=== PATIENT | female | born 1935 | race Caucasian/White ===

== ENCOUNTER 2017-01-03 06:37 | Day surgery (SDC) | payer MEDICARE, BC ==
[2008-10-01 04:57] VITALS: BP 105/53
[~2017-01-03] VITALS: Ht 160 cm; Wt 89.9 kg
[2017-01-03] VITALS (8 sets, daily range): BP systolic 96–135; BP diastolic 40–85; PULSE 68–95; TEMP 97.3
[~2017-01-03 06:37] MED LIST: ACID CONTROLLER; ALEVE; ALLEGRA180 MG PO; ALLERGY RELIEF10 MG PO; ASPIRIN 32325 MG/TAB PO; ATENOLOL PO; ATENOLOL25 MG PO; BENZONATATE100 MG PO; BENZONATATE200 MG PO; BENZONATE; BUDESONIDE1 POW; BUPROPION; BUPROPION HCL150 M1 PO; BUPROPION SR150 MG PO; CENTRUM1 TAB PO; CLARITIN; CLARITIN 1010 MG/TAB PO; CLONAZEPAM PO; CLONAZEPAM0.5 MG PO; CRANBERRY CONC500 MG PO; CRANBERRY425 MG PO; DIOVAN80 M1 PO; DIOVAN80 MG PO; DUO NEBULIZER; DUONEB 3 MG/3 ML3 ML IH; EYE WASH; FLONASE NASAL S16 GM NS; FLONASE0.05 MG/AC NS; FLUTICASONE; FORADIL; FORADIL AERO0.012 MG IH; FORADIL IH; GABAPENTIN300 M1 PO; GENTAMICIN180 MG/501 NS; HUMULIN R 10100 U/ML SC; HUMULIN R100 U/ML SQ; IPRATROPIUM BROM3 M1 IH; IRON; KLONOPIN 0.5MG0.5 MG PO; LANTUS SQ; LANTUS100 U/ML; LANTUS100 U/ML SQ; LEVOXYL0.05 MG PO; LISINOPRIL; LISINOPRIL10 MG PO; LISINOPRIL20 MG PO; LORTAB 7.5/5001 TAB PO; LYRICA 100MG C100 M1 PO; LYRICA 150MG C150 MG PO; LYRICA PO; LYRICA100 MG PO; LYRICA150 MG PO; MULTIPLE VITAMI1 CAP PO; MVI; OXY IR5 MG PO; OXYCODONE; OXYCODONE HCL5 MG PO; OXYCODONE5 MG PO; PERCOCET 500 MG1 TAB PO; POLY IRON; PROVENTIL0.09 MG/A1 IH; PULMICORT0.25 MG/2 IH; PULMICORT0.5 MG/21 IH; REFRESH 1 ML1 ML OP; REFRESH PM OP; RT SPIRIVA18 MCG IH; SIMVASTATIN20 MG PO; SINGULAIR; SINGULAIR 110 MG/TAB PO; SINGULAIR PO; SINGULAIR10 MG PO; SPIRIVA HANDIH18 MCG IH; SPIRIVA18 MCG IH; TENORMIN 2525 MG/TAB PO; ULTRAM; ULTRAM 50MG TAB50 MG PO; ULTRAM50 MG PO; VISION FORMULA; VISION FORMULA1 TAB PO; VISION VITAMINS1 TAB PO; VITAMIN E1000 U/CAP PO; VITAMIN E200 I1 PO; VITAMINS; WELLBUTRIN SR150 M1 PO; ZESTRIL 20MG TA20 MG PO; ZOCOR 20MG20 MG PO; [UNRECOGNIZED DRUG - OTHER]; [UNRECOGNIZED DRUG - OTHER]; [UNRECOGNIZED DRUG - OTHER]; [UNRECOGNIZED DRUG - OTHER] IH
[2017-01-03] MEDS ORDERED: ULTRAM 50MG TAB50 MG PO ×2 (07:59→14:52)
[2017-01-03] MEDS ORDERED: CLARITIN 1010 MG/TAB PO (08:00)
[2017-01-03] MEDS ORDERED: LYRICA 150MG C150 MG PO (08:02)
[2017-01-03] MEDS ORDERED: CRANBERRY500 M3 PO (08:03)
[2017-01-03] MEDS ORDERED: CENTRUM HEART (08:04)
[2017-01-03] MEDS ORDERED: TIROSINT50 MC1 PO (08:05)
[2017-01-03] MEDS ORDERED: LUTEIN20 M1 PO (08:06)
[2017-01-03] MEDS ORDERED: [UNRECOGNIZED DRUG - OTHER] (08:07)
[2017-01-03] MEDS ORDERED: ZOCOR 20MG20 MG PO (08:11)
[2017-01-03] MEDS ORDERED: NATURAL E400 IU PO (08:12)
[2017-01-03] MEDS ORDERED: VITAMIND3 5000 (08:13)
[2017-01-03] MEDS ORDERED: MAGNESIUM200 MG PO (08:14)
[2017-01-03] MEDS ORDERED: [UNRECOGNIZED DRUG - OTHER] (08:15)
[2017-01-03] MEDS ORDERED: NOVOLOG FLEX100 U/ML SQ (08:16)
[2017-01-03] MEDS ORDERED: LANTUS SOLOS100 U/ML SQ (08:17)
[2017-01-03] MEDS ORDERED: NORCO 325 MG-7.1 TAB PO ×2 (08:24→14:50)
[2017-01-03] MEDS ORDERED: NORCO 325 MG-7.1 TAB (14:49)
== END 2017-01-03 14:20 | disposition home or self-care (01) ==
LOC: SDCO 06:37
DX: G56.02 Carpal tunnel syndrome, left upper limb (principal); G56.22 Lesion of ulnar nerve, left upper limb; J44.9 Chronic obstructive pulmonary disease, unspecified; E03.9 Hypothyroidism, unspecified; E11.9 Type 2 diabetes mellitus without complications; Z79.4 Long term (current) use of insulin; Z90.49 Acquired absence of other specified parts of digestive tract; Z90.710 Acquired absence of both cervix and uterus; Z96.643 Presence of artificial hip joint, bilateral; Z86.73 Personal history of transient ischemic attack (TIA), and cerebral infarction without residual deficits; Z83.3 Family history of diabetes mellitus; Z82.61 Family history of arthritis; Z82.5 Family history of asthma and other chronic lower respiratory diseases; Z82.49 Family history of ischemic heart disease and other diseases of the circulatory system; Z82.62 Family history of osteoporosis
CPT/HCPCS: J0690; J1100; J2405; J2704; J2765; J3010; J7030

== ENCOUNTER 2020-06-07 12:46 | Emergency (ER) | payer MEDICARE ==
[2008-10-01 04:57] VITALS: BP 105/53
[~2020-06-07] VITALS: Ht 160 cm; Wt 97.7 kg
[~2020-06-07 12:46] MED LIST changes: +CENTRUM HEART; +CRANBERRY500 M3 PO; +DOXYCYCLINE 10100 MG PO; +LANTUS SOLOS100 U/ML SQ; +LUTEIN20 M1 PO; +MAGNESIUM200 MG PO; +NATURAL E400 IU PO; +NORCO 325 MG-7.1 TAB; +NORCO 325 MG-7.1 TAB PO; +NOVOLOG FLEX100 U/ML SQ; +TESSALON P100 MG/CAP PO; +TIROSINT50 MC1 PO; +VITAMIND3 5000; +[UNRECOGNIZED DRUG - OTHER]; +[UNRECOGNIZED DRUG - OTHER]
[2020-06-07 12:47] VITALS: TEMP 97.8
[2020-06-07] MEDS ORDERED: CRUTCHES MC (14:20)
[2020-06-07] MEDS ORDERED: ULTRAM 50MG TAB50 MG PO (14:42)
--- NOTE | 2020-06-07 15:54 | NUR ---
OWEN consult on ortho concern. SW received call from [employer] Quality [employer] of [facility] . She reports that the patient resides with her DTR and Son in law. DTR is POS. Guillaume Coppola son in law. SON in law called and stated that he can not care for patient at home and that he is unable to pick her up until 6:00 pm. Patient is not admittable for stay according to DR. Duff with [facility]. Patient's PCP is Dr. Mendoza, RX obtained at [facility] and [facility]. Patient reports that she uses an electronic wheelchair for mobility. Patient is reported to have an ortho appointment tomorrow at 01:00 p.m. Patient has [facility] care who provides pt/ot services one x a week. OWEN contacted [facility] and spoke with Keya and Tamara about patient's care. Patient is 1 stand by assist and needs further evaluation and our team is not present to complete the assessment. Educated Tamara and Keya about patient's appointment and supporting patient with additional home health services for Tomorrow. Keya reports that they need orders from the that indicate additional home health services. Educated Orders will be faxed after they are finalized. Educated Kiah-case management specialist on plan to evaluate and if needed make consult to IPR. OWEN contact [facility] but will need the evaluation. Yulisa reports that placement from community is a little more involved and we can consult once we have an eval. We will follow up for care on patient if placement is neccassary.
[2020-06-07 17:03] VITALS: BP 100/51; PULSE 77
== END 2020-06-07 17:05 | disposition home or self-care (01) ==
LOC: COL.ER 12:46
DX: S82.852A Displaced trimalleolar fracture of left lower leg, initial encounter for closed fracture (principal); I10 Essential (primary) hypertension; J44.9 Chronic obstructive pulmonary disease, unspecified; E11.9 Type 2 diabetes mellitus without complications; F32.9 Major depressive disorder, single episode, unspecified; G89.29 Other chronic pain; M54.9 Dorsalgia, unspecified; E03.9 Hypothyroidism, unspecified; Z88.0 Allergy status to penicillin; Z86.73 Personal history of transient ischemic attack (TIA), and cerebral infarction without residual deficits; Z88.2 Allergy status to sulfonamides; Z88.6 Allergy status to analgesic agent; Z88.8 Allergy status to other drugs, medicaments and biological substances; Z79.890 Hormone replacement therapy; Z79.4 Long term (current) use of insulin; W18.11XA Fall from or off toilet without subsequent striking against object, initial encounter
CPT/HCPCS: J2405; J3010

== ENCOUNTER 2020-06-23 05:20 | Day surgery (SDC) | payer MEDICARE, BC ==
[~2020-06-23] VITALS: Ht 160 cm; Wt 90.9 kg
[~2020-06-23 05:20] MED LIST changes: +CRUTCHES MC
[2020-06-23 06:25] VITALS: BP 146/57; PULSE 71; TEMP 98.5
--- NOTE | 2020-06-23 06:42 | NUR ---
TO AT 0537- CALL LIGHT IN REACH DR MANRIQUEZ INTO SEE PATIENT
[2020-06-23] MEDS ORDERED: LYRICA 150MG C150 MG PO (06:47)
[2020-06-23] MEDS ORDERED: CENTRUM1 TA1 PO (06:48)
[2020-06-23] MEDS ORDERED: CALCIUM CARBON650 M2 PO (06:50)
[2020-06-23] MEDS ORDERED: COZAAR 25MG25 MG/TAB PO (06:52)
[2020-06-23] MEDS ORDERED: VISION FORMULA1 EAC1 PO (06:53)
[2020-06-23] MEDS ORDERED: VITAMIN E 400 U4001 PO (06:56)
[2020-06-23] MEDS ORDERED: PROBIOTIC FORMU1 CAP PO (06:58)
[2020-06-23] MEDS ORDERED: VENTOLIN0.09 MG IH (06:59)
[2020-06-23] MEDS ORDERED: NOVOLOG FLEX100 U/ML SQ ×2 (07:03→07:04)
[2020-06-23] MEDS ORDERED: NYSTATIN100000 U/1 TOP (07:06)
[2020-06-23 09:45] VITALS: BP 107/84; PULSE 81; TEMP 97.7
--- NOTE | 2020-06-23 10:00 | NUR ---
Patient is back from surgery. She continues to have some pain to left ankle. She stated if we put ice on and reposition her ankle it will help. CMS intact to left foot/toes. Splint dressing to LORETTA CONTEH. Patient is alert and oriented. Denies nausea. Oriented to room. No other changes at this time. Call light within reach.
[2020-06-23 17:28] VITALS: PULSE 79; TEMP 98.2
[2020-06-23 17:30] VITALS: BP 104/45
--- NOTE | 2020-06-23 18:00 | NUR ---
Patient has been doing well since getting back from surgery this morning. Pain is doing better. She was able to nap this afternoon. Her dynamap turned off at some point during her post-ops and can not get it to turn back on. Have attempted several times to turn it back on. Patient denies pain and nausea. No other changes at this time. Call light within reach.
[2020-06-23 19:49] VITALS: BP 95/46; PULSE 83; TEMP 97.7
--- NOTE | 2020-06-23 21:00 | NUR ---
Patient resting in bed with left lower extremity elevated. Capillary refill to left lower extremity less than 3 seconds. Some complaints of pain. [place] and ultram alternated for pain control. Dressing to extremity clean, dry, and intact. Patient using bedpan to void. No other needs at this time. Call light in reach.
[2020-06-23 23:57] VITALS: BP 104/40; PULSE 83; TEMP 97.8
[2020-06-24 04:00] VITALS: BP 106/52; PULSE 79; TEMP 97.6
[2020-06-24 07:23] VITALS: BP 109/46; PULSE 77; TEMP 97.9
--- NOTE | 2020-06-24 07:49 | NUR ---
Patient repositioned in bed for breakfast. Blood sugar stable this am. No insulin required. Left lower extremity elevated & iced. Cms intact. Spint CDI. Int. Patient has chronic pain in back & hip, but pain is elevated post surgery. Pain medication manages well for her. We did discuss side effect of pain medication being constipation, she denies passing flatus, bowel hypoactive. She denies stools softners at this time. Patient thankful for assist with hygiene this am. Will monitor.
--- NOTE | 2020-06-24 10:07 | NUR ---
First visit from the adjunct instructor. No needs right now.
[2020-06-24 12:05] VITALS: BP 103/41; PULSE 72; TEMP 97.8
[2020-06-24] MEDS ORDERED: ASPI325T6 PO (13:11)
--- NOTE | 2020-06-24 13:56 | NUR ---
The patient to discharge home today, 06/24 with [facility] (PT/OT/Nursing) and family support. Debit Agent discussed the discharge plan with the patient's son-in-law, Guillaume. Guillaume has some concerns about taking the patient home. OWEN discussed the options. One option is to private pay at a SNF or home with private duty with an agency. Guillaume was not agreeable to private paying for SNF. He has reached out to [facility] and they may set up services through them. Guillaume states he does not want to go broke paying for the patient's expenses because she did not prepare for extra care. Guillaume reports that [facility] was going to accept the patient but could not do an admission this day, possibly next week. OWEN discussed the payor source with Guillaume. Guillaume states the Medicaid application is only missing the patient's signature. After the patient signs the application he will submit it. After reviewing the patient's chart, the patient has had [facility] in the past. OWEN contacted Foxsmita with [facility]. She confirms they have had her and recently discharged. But will take her for services once again. OWEN faxed clinical updates and discharge orders. OWEN contacted Rebeca with [employer]. Rebeca states they cannot take Medicaid pending at this time. They would have to ensure the application has a good chance of getting approved if the accept. Rebeca mentioned that Guillaume stated that [facility] accepted the patient. SW to contact . OWEN contacted Nabil with [facility] and she states they have not accepted the patient but are willing work with the patient and her family for acceptance from the community. OWEN contacted Martha Jacobson, case reviewer with [facility] to provide the above information. *Discharge Disposition: Home with family support and [facility].
[2020-06-24 17:11] VITALS: BP 133/87; BP 33/87; PULSE 84; TEMP 98.4
--- NOTE | 2020-06-24 17:51 | NUR ---
Patient ready for discharge. Social work assisted with discharge planning. She has been in touch with patient son in law who will provide ride. Int dc. Blood sugar stable. Vss on room air. Left lower extremity cms intact. Pain medication per orders-manages pain. Patient used bedpan prior to discharge. Patient dressed & slide board used to get patient to her home wheelchair. Awaiting her son
--- NOTE | 2020-06-24 18:39 | NUR ---
Patient son here to take her home. Employment And Claims Aide to wheel her out
== END 2020-06-24 18:41 | disposition home health service (06) ==
LOC: SDCO 05:20 → SURG 09:38 → SDCO 06-24 18:41
DX: S93.432A Sprain of tibiofibular ligament of left ankle, initial encounter (principal); S82.852A Displaced trimalleolar fracture of left lower leg, initial encounter for closed fracture; E11.8 Type 2 diabetes mellitus with unspecified complications; E78.00 Pure hypercholesterolemia, unspecified; M19.90 Unspecified osteoarthritis, unspecified site; J44.9 Chronic obstructive pulmonary disease, unspecified; Z20.822 Contact with and (suspected) exposure to COVID-19; Z79.899 Other long term (current) drug therapy; Z79.4 Long term (current) use of insulin; Z80.9 Family history of malignant neoplasm, unspecified; Z79.82 Long term (current) use of aspirin; Z99.3 Dependence on wheelchair; Z96.643 Presence of artificial hip joint, bilateral; W19.XXXA Unspecified fall, initial encounter
CPT/HCPCS: OP; C1713; J0690; J1815; J2704; J3010; J7030

== ENCOUNTER → 2020-12-01 | Outpatient (CLI) | payer MEDICARE, BC ==
[~2020-12-01] MED LIST changes: +ASPI325T6 PO; +CALCIUM CARBON650 M2 PO; +CENTRUM1 TA1 PO; +COZAAR 25MG25 MG/TAB PO; +NYSTATIN100000 U/1 TOP; +PROBIOTIC FORMU1 CAP PO; +VENTOLIN0.09 MG IH; +VISION FORMULA1 EAC1 PO; +VITAMIN E 400 U4001 PO
== END ==
LOC: COL.RAD 10:45
DX: Z01.812 Encounter for preprocedural laboratory examination (principal); M47.816 Spondylosis without myelopathy or radiculopathy, lumbar region; N20.0 Calculus of kidney; Z90.49 Acquired absence of other specified parts of digestive tract; Z96.643 Presence of artificial hip joint, bilateral
CPT/HCPCS: Q9967

== ENCOUNTER → 2021-05-15 | Outpatient (CLI) | payer MEDICARE, BC | LOC: COL.RAD 09:54 | DX: M54.50 Low back pain, unspecified (principal); Z98.1 Arthrodesis status ==

== ENCOUNTER 2021-05-30 12:25 | Outpatient (CLI) | payer MEDICARE, BC, MEDICAID ==
[2008-10-01 04:57] VITALS: BP 105/53
[~2021-05-30] VITALS: Ht 160 cm; Wt 97.7 kg
[2021-05-30 12:50] VITALS: BP 150/80; PULSE 67; TEMP 97.3
[2021-05-30 14:10] VITALS: BP 146/73; PULSE 78
[2021-05-30 14:15] VITALS: BP 143/68; PULSE 75
[2021-05-30 14:30] VITALS: BP 137/67; PULSE 73
[2021-05-30 14:45] VITALS: BP 131/54; PULSE 75
[2021-05-30 15:00] VITALS: BP 136/65; PULSE 74
--- NOTE | 2021-05-30 15:20 | NUR ---
Discharge instructions given to pt.Pt verbalizes understanding.Pt escorted out to [facility] via [facility] by this nurse.
== END 2021-05-30 15:39 ==
LOC: COL.RAD 12:25
DX: M47.816 Spondylosis without myelopathy or radiculopathy, lumbar region (principal); M48.061 Spinal stenosis, lumbar region without neurogenic claudication
CPT/HCPCS: Q9965

== ENCOUNTER → 2021-06-26 | Outpatient (CLI) | payer MEDICARE, BC, MEDICAID | LOC: MHCPAIN 10:19 | DX: M47.817 Spondylosis without myelopathy or radiculopathy, lumbosacral region (principal); M53.3 Sacrococcygeal disorders, not elsewhere classified; M54.16 Radiculopathy, lumbar region; M96.1 Postlaminectomy syndrome, not elsewhere classified | CPT/HCPCS: G0463 ==

== ENCOUNTER → 2021-07-06 | Outpatient (CLI) | payer MEDICARE, BC, MEDICAID | LOC: MHCPAIN 10:08 | DX: M47.816 Spondylosis without myelopathy or radiculopathy, lumbar region (principal); M96.1 Postlaminectomy syndrome, not elsewhere classified; M54.16 Radiculopathy, lumbar region; M53.3 Sacrococcygeal disorders, not elsewhere classified | CPT/HCPCS: J1100; Q9967 ==

== ENCOUNTER → 2021-07-19 | Outpatient (CLI) | payer MEDICARE, BC, MEDICAID | LOC: MHCPAIN 10:41 | DX: M47.896 Other spondylosis, lumbar region (principal); M96.1 Postlaminectomy syndrome, not elsewhere classified | CPT/HCPCS: G0463 ==

== ENCOUNTER → 2021-10-05 | Outpatient (CLI) | payer MEDICARE, BC, MEDICAID | LOC: COL.VAS 14:13 | DX: R05.3 Chronic cough (principal) ==

== ENCOUNTER → 2022-11-27 | Outpatient (CLI) | payer MEDICARE, BC, MEDICAID ==
[2022-11-27 14:52] LABS: ALBUMIN 3.6 gm/dL (3.4-4.8); BILIRUBIN,TOTAL 0.4 mg/dL (0.2-1.2); CALCIUM 10.2 mg/dL (8.4-10.2); CHOLESTEROL RISK RATIO 3.3; CREATININE, serum 1.38 mg/dL (0.57-1.11); POTASSIUM 4.3 mmol/L (3.5-4.5); TOTAL PROTEIN 6.9 gm/dL (6.2-8.1)
[2022-11-27 15:12] LABS: THYROID STIMULATING HORMONE 2.141 uIU/mL (0.350-4.940)
== END ==
LOC: ZCOL.LAB 14:24
PROVIDERS: Internal Medicine
DX: N18.30 Chronic kidney disease, stage 3 unspecified (principal); E78.00 Pure hypercholesterolemia, unspecified; E11.29 Type 2 diabetes mellitus with other diabetic kidney complication; E11.42 Type 2 diabetes mellitus with diabetic polyneuropathy; E03.9 Hypothyroidism, unspecified

== ENCOUNTER → 2022-12-18 | Outpatient (REF) | payer MEDICARE, BC, MEDICAID ==
[2022-12-18 17:05] LABS: HEMOGLOBIN 11.1 g/dl (12.5-16.0); MEAN CELL VOLUME 93 fl (80.0-100.0); MEAN CORPUSCULAR HEMOGLOBIN 29 pg (27-31); MEAN CORPUSCULAR HGB CONC 32 g/dl (33.0-37.0); MEAN PLATELET VOLUME 12.1 fl (7.4-10.4); PLATELET COUNT 189 K/mm3 (130-400); RED BLOOD COUNT 3.77 M/mm3 (4.10-5.30); REDCELL DISTRIBUTION WIDTH-CV 14.4 % (11.5-14.5)
[2022-12-18 17:07] LABS: HEMATOCRIT 35.1 % (37.0-47.0)
[2022-12-18 17:08] LABS: CALCIUM 9.2 mg/dL (8.4-10.2); CREATININE, serum 1.49 mg/dL (0.57-1.11); POTASSIUM 4.5 mmol/L (3.5-4.5)
[2022-12-18 17:52] LABS: BAND 1 % (0-10); EOSINOPHIL 5 % (0-4); LYMPHOCYTE 46 % (20.0-51.0); NEUTROPHILS 35 % (42.0-75.2); PLATELET ESTIMATE NORMAL (NORMAL)
== END ==
LOC: ZCOL.LAB 16:39
PROVIDERS: Internal Medicine
DX: D64.9 Anemia, unspecified (principal)

== ENCOUNTER → 2023-04-16 | Outpatient (REF) | payer MEDICARE, BC, MEDICAID ==
[2023-04-16 12:37] LABS: BASO # 0.1 K/mm3 (0.0-0.2); BASO % 1.2 % (0.0-2.0); EOS # 0.5 K/mm3 (0.0-0.7); EOS % 6.6 % (0.0-4.0); GRAN # 3.2 K/mm3 (1.4-6.5); GRAN % 39.9 % (42.2-75.2); HEMATOCRIT 34.6 % (37.0-47.0); LYMPH # 2.8 K/mm3 (1.2-3.4); LYMPH % 34.2 % (20.0-51.0); MEAN CELL VOLUME 92 fl (80.0-100.0); MEAN CORPUSCULAR HEMOGLOBIN 29 pg (27-31); MEAN CORPUSCULAR HGB CONC 32 g/dl (33.0-37.0); MEAN PLATELET VOLUME 11.6 fl (7.4-10.4); MONO # 1.5 K/mm3 (0.1-0.6); MONO % 17.9 % (1.7-9.3); PLATELET COUNT 162 K/mm3 (130-400); RED BLOOD COUNT 3.78 M/mm3 (4.10-5.30)
[2023-04-16 12:38] LABS: ALBUMIN 3.4 gm/dL (3.4-4.8); BILIRUBIN,TOTAL 0.4 mg/dL (0.2-1.2); CALCIUM 9.6 mg/dL (8.4-10.2); CREATININE, serum 1.48 mg/dL (0.57-1.11); POTASSIUM 4.2 mmol/L (3.5-4.5); TOTAL PROTEIN 6.3 gm/dL (6.2-8.1)
== END ==
LOC: ZCOL.LAB 12:15
PROVIDERS: Internal Medicine
DX: N18.32 Chronic kidney disease, stage 3b (principal); E11.29 Type 2 diabetes mellitus with other diabetic kidney complication

== ENCOUNTER → 2023-06-13 | Outpatient (CLI) | payer MEDICARE, BC, MEDICAID ==
[~2023-06-13] MED LIST changes: +CALCIUM 600600 MG PO; +CENTRUM SILVER1 TAB PO; +COZAAR 50MG50 MG/TAB PO; +DULCOLAX S10 MG/SUPP RC; +EXPECTORANT DM120 ML PO; +HUMALOG KW200 UNIT/1 SQ; +IMODIUM 2MG CAPS2 MG PO; +INSULIN LI100 UNIT/2; +LASIX 20MG TABL20 MG PO; +LYRICA 75MG CAP75 MG PO; +MAG-OX 400400 MG/TAB PO; +MASON NATURAL2000 IU PO; +MILK OF MA400 MG/52 PO; +MYLANTA MAXIMU355 M1 PO; +NORCO 325 MG-51 TAB PO; +NYSTATIN POWDER15 GM TOP; +ORAL PAIN REL9.35 GM MM; +RT ADVAIR HFA 1112 G; +RT ADVAIR HFA 1112 G IH; +SYSTANE BALANCE10 M1 OP; +TYLENOL 325MG325 MG PO; +TYLENOL SU650 MG/SUP RC; +ZOFRAN 4MG T4 MG/TAB PO
[2023-06-13 20:59] LABS: COLLECTION METHOD CLEAN CATCH
[2023-06-13 21:04] LABS: ALBUMIN 3.2 g/dL (3.4-4.8); BILIRUBIN,TOTAL 0.6 mg/dL (0.2-1.2); CALCIUM 9.3 mg/dL (8.4-10.2); CREATININE, serum 1.47 mg/dL (0.57-1.11); POTASSIUM 4.5 mEq/L (3.5-4.5); TOTAL PROTEIN 6.7 g/dl (6.2-8.1)
[2023-06-13 21:08] LABS: HEMATOCRIT 33.3 % (37.0-47.0); HEMOGLOBIN 10.6 g/dl (12.5-16.0); MEAN CELL VOLUME 90 fl (80.0-100.0); MEAN CORPUSCULAR HEMOGLOBIN 29 pg (27-31); MEAN CORPUSCULAR HGB CONC 32 g/dl (33.0-37.0); MEAN PLATELET VOLUME 12.4 fl (7.4-10.4); PH 6.5 (5.0-8.5); PLATELET COUNT 215 K/mm3 (130-400); RED BLOOD COUNT 3.72 M/mm3 (4.10-5.30); REDCELL DISTRIBUTION WIDTH-CV 14.7 % (11.5-14.5); URINE APPEARANCE CLEAR (CLEAR/HAZY); URINE BLOOD NEGATIVE (NEGATIVE); URINE COLOR YELLOW (YELLOW); URINE GLUCOSE NEGATIVE (NEGATIVE); URINE KETONE NEGATIVE (NEGATIVE); URINE NITRATE NEGATIVE (NEGATIVE); URINE PROTEIN(semi-quant) NEGATIVE (NEGATIVE); URINE UROBILINOGEN 0.2 E.U/dL (0.2-1.0)
[2023-06-13 21:38] LABS: BAND 1 % (0-10); EOSINOPHIL 3 % (0-4); LYMPHOCYTE 39 % (20.0-51.0); NEUTROPHILS 42 % (42.0-75.2); PLATELET ESTIMATE NORMAL (NORMAL)
[2023-06-13 21:39] LABS: ANISOCYTOSIS 1+
== END ==
LOC: ZCOL.LAB 20:13
PROVIDERS: Internal Medicine
DX: R53.1 Weakness (principal)

== ENCOUNTER 2023-06-16 17:36 | Inpatient (IN) | payer MEDICARE, BC, MEDICAID ==
[~2023-06-16] VITALS: Ht 165.1 cm; Wt 98.7 kg
[~2023-06-16 17:36] MED LIST changes: -CALCIUM 600600 MG PO; -CENTRUM SILVER1 TAB PO; -COZAAR 50MG50 MG/TAB PO; -DULCOLAX S10 MG/SUPP RC; -EXPECTORANT DM120 ML PO; -HUMALOG KW200 UNIT/1 SQ; -IMODIUM 2MG CAPS2 MG PO; -INSULIN LI100 UNIT/2; -LASIX 20MG TABL20 MG PO; -LYRICA 75MG CAP75 MG PO; -MAG-OX 400400 MG/TAB PO; -MASON NATURAL2000 IU PO; -MILK OF MA400 MG/52 PO; -MYLANTA MAXIMU355 M1 PO; -NORCO 325 MG-51 TAB PO; -NYSTATIN POWDER15 GM TOP; -ORAL PAIN REL9.35 GM MM; -RT ADVAIR HFA 1112 G; -RT ADVAIR HFA 1112 G IH; -SYSTANE BALANCE10 M1 OP; -TYLENOL 325MG325 MG PO; -TYLENOL SU650 MG/SUP RC; -ZOFRAN 4MG T4 MG/TAB PO
[2023-06-16 17:54] LABS: HEMOGLOBIN 11.8 g/dl (12.5-16.0); MEAN CELL VOLUME 91 fl (80.0-100.0); MEAN CORPUSCULAR HEMOGLOBIN 29 pg (27-31); MEAN CORPUSCULAR HGB CONC 33 g/dl (33.0-37.0); MEAN PLATELET VOLUME 11.3 fl (7.4-10.4); PLATELET COUNT 251 K/mm3 (130-400); RED BLOOD COUNT 4.01 M/mm3 (4.10-5.30); REDCELL DISTRIBUTION WIDTH-CV 14.7 % (11.5-14.5)
[2023-06-16 17:55] LABS: HEMATOCRIT 36.3 % (37.0-47.0)
[2023-06-16] MEDS ORDERED: Albuterol/Ipratropium 3 MG-0.5 MG/3 ML Neb Soln IH ONE (18:00)
[2023-06-16 18:12] LABS: ARTERIAL BLD GAS O2 SATURATION 87.8 % (92-100); ARTERIAL BLD GAS TCO2 CT 33.2; ARTERIAL BLOOD GAS BASE EXCESS 6.3 (-2-2); ARTERIAL BLOOD GAS HCO3 31.6 meq/L (22-26); ARTERIAL BLOOD GAS PO2 52.7 mmHg (80-100); ARTERIAL BLOOD GAS pH 7.43 (7.35-7.45)
[2023-06-16 18:14] LABS: ALBUMIN 3.2 g/dL (3.4-4.8); BILIRUBIN,TOTAL 0.3 mg/dL (0.2-1.2); C-REACTIVE PROTEIN 4.94 mg/dL (0.00-0.50); CREATININE, serum 1.69 mg/dL (0.57-1.11); POTASSIUM 4.6 mEq/L (3.5-4.5); TOTAL PROTEIN 8.1 g/dl (6.2-8.1)
[2023-06-16 18:24] LABS: TROPONIN-I 0.057 ng/mL (0.00-0.033)
[2023-06-16 18:43] LABS: BAND 2 % (0-10); EOSINOPHIL 3 % (0-4); LYMPHOCYTE 24 % (20.0-51.0); NEUTROPHILS 57 % (42.0-75.2); PLATELET ESTIMATE NORMAL (NORMAL)
[2023-06-16] MEDS ORDERED: Heparin/D5W 250 ML IV SCH (18:45)
[2023-06-16] MEDS ORDERED: Heparin 5,000 UNITS/ML 1 ML VIAL IV ONE (18:45)
[2023-06-16] MEDS ORDERED: NS 1,000 ML IV SCH (18:45)
[2023-06-16] MEDS ORDERED: Vancomycin 2 GM,Special Dose/Pharmacy Prepared 2 GM in NS 500 ML IV SCH (18:45)
[2023-06-16] MEDS ORDERED: Cefepime 1 G in Water For Injection,Sterile 10 ML IV SCH (18:45)
[2023-06-16] MEDS ORDERED: Acetaminophen 325 MG TAB PO PRN (18:45)
[2023-06-16] MEDS ORDERED: Heparin 5,000 UNITS/ML 1 ML VIAL IV PRN (18:45)
[2023-06-16] MEDS ORDERED: Albuterol/Ipratropium 3 MG-0.5 MG/3 ML Neb Soln IH PRN ×2 (18:45)
[2023-06-16 19:13] LABS: INR 1.2 (0.8-3.0); PROTHROMBIN TIME 12.7 SECONDS (9.7-12.8)
[2023-06-16] MEDS ORDERED: Vancomycin 1.75 GM,Special Dose/Pharmacy Prepared 1.75 GM in NS 500 ML IV ONE (19:15)
[2023-06-16 19:16] LABS: PARTIAL THROMBOPLASTIN TIME 37.1 SECONDS (26.0-37.0)
[2023-06-16] MEDS ORDERED: FLONASE NASAL S16 GM NS (19:56)
[2023-06-16] MEDS ORDERED: Albuterol/Ipratropium 3 MG-0.5 MG/3 ML Neb Soln IH SCH ×2 (20:00)
[2023-06-16] MEDS ORDERED: INSULIN LI100 UNIT/2 (20:01)
[2023-06-16] MEDS ORDERED: LASIX 20MG TABL20 MG PO (20:46)
[2023-06-16] MEDS ORDERED: RT ADVAIR HFA 1112 G (20:50)
[2023-06-16 21:00] VITALS: BP_SYST 142
--- NOTE | 2023-06-16 21:01 | NUR ---
Vancomycin Initial Dosing Pharmacy Note Ordering provider: Umer Ramos MD Indication/duration: PNEUMONIA - 7 DAYS Relevant comorbidities: LTC RESIDENT LABS: SCR: 1.69 ECRCL: 24 ML/MIN Recommendation: Loading dose: 1.75 grams Maintenance dose: 1.25 grams every 24 hours Trough goal: 15-20 ug/mL
[2023-06-16] MEDS ORDERED: methylPREDNISolone Sod Succ 125 MG/2 ML VIAL IV ONE (21:30)
[2023-06-16 21:54] VITALS: BP 142/65; PULSE 92; TEMP 98.6
[2023-06-16] MEDS ORDERED: Simvastatin 20 MG **** subs to Atorvastatin 10 MG PO SCH (22:53)
[2023-06-16] MEDS ORDERED: NORCO 325 MG-51 TAB PO (22:55)
[2023-06-16] MEDS ORDERED: ULTRAM 50MG TAB50 MG PO (22:56)
[2023-06-16] MEDS ORDERED: MAG-OX 400400 MG/TAB PO (22:57)
[2023-06-16] MEDS ORDERED: Pregabalin 150 MG CAP PO SCH (22:57)
[2023-06-16] MEDS ORDERED: traMADol 50 MG TAB PO PRN (23:00)
[2023-06-16] MEDS ORDERED: D-Alpha Tocopheryl (Vitamin E) 400 Units CAP PO SCH (23:00)
[2023-06-16] MEDS ORDERED: Nystatin 100,000 Units/GM Cream 15 GM TUBE TP PRN (23:00)
[2023-06-16 23:04] VITALS: BP_SYST 142
[2023-06-16] MEDS ORDERED: DULCOLAX S10 MG/SUPP RC (23:06)
[2023-06-16] MEDS ORDERED: TESSALON P100 MG/CAP PO (23:06)
[2023-06-16] MEDS ORDERED: TYLENOL SU650 MG/SUP RC (23:06)
[2023-06-16] MEDS ORDERED: CENTRUM SILVER1 TAB PO (23:07)
[2023-06-16] MEDS ORDERED: RT ADVAIR HFA 1112 G IH (23:07)
[2023-06-16] MEDS ORDERED: CALCIUM 600600 MG PO (23:07)
[2023-06-16] MEDS ORDERED: EXPECTORANT DM120 ML PO (23:08)
[2023-06-16] MEDS ORDERED: HUMALOG KW200 UNIT/1 SQ ×2 (23:09→23:10)
[2023-06-16] MEDS ORDERED: IMODIUM 2MG CAPS2 MG PO (23:11)
--- NOTE | 2023-06-16 23:11 | NUR ---
HOSPITALIST CHIKI SIMMONS CALLED FOR HIGH CRITICAL TROPONIN OF 0.044. NO NEW ORDERS RECIEVED.
[2023-06-16] MEDS ORDERED: LANTUS SOLOS100 U/ML SQ (23:12)
[2023-06-16] MEDS ORDERED: COZAAR 50MG50 MG/TAB PO (23:12)
[2023-06-16] MEDS ORDERED: LUTEIN20 M1 PO (23:12)
[2023-06-16] MEDS ORDERED: MILK OF MA400 MG/52 PO (23:13)
[2023-06-16] MEDS ORDERED: MYLANTA MAXIMU355 M1 PO (23:13)
[2023-06-16] MEDS ORDERED: LYRICA 75MG CAP75 MG PO (23:14)
[2023-06-16] MEDS ORDERED: ORAL PAIN REL9.35 GM MM (23:14)
[2023-06-16] MEDS ORDERED: NYSTATIN POWDER15 GM TOP (23:14)
[2023-06-16] MEDS ORDERED: TYLENOL 325MG325 MG PO (23:15)
[2023-06-16] MEDS ORDERED: SYSTANE BALANCE10 M1 OP (23:15)
[2023-06-16] MEDS ORDERED: ZOFRAN 4MG T4 MG/TAB PO (23:16)
[2023-06-16] MEDS ORDERED: MASON NATURAL2000 IU PO (23:16)
[2023-06-16] MEDS ORDERED: Insulin Glargine-ygfn (Lantus) SQ SCH (23:19)
[2023-06-16] MEDS ORDERED: Benzonatate 100 MG CAP PO PRN (23:30)
[2023-06-16] MEDS ORDERED: Carboxymethylcellulose PF Ophth 0.4 ML DROPPERETTE OP PRN (23:30)
[2023-06-16] MEDS ORDERED: guaiFENesin/Dextromethorphan Oral Soln 200-20 MG/10 ML UD PO PRN (23:30)
[2023-06-17] VITALS (10 sets, daily range): BP systolic 102–147; BP diastolic 53–83; PULSE 82–102; TEMP 97.5–98.6
[2023-06-17] MEDS ORDERED: Dextrose (Glucose) 15 GM (4 x 3.75 GM) Chewable TABLET PACK PO PRN (00:15)
[2023-06-17] MEDS ORDERED: Dextrose 50% Water 25 GM/50 ML SYRINGE IV PRN (00:15)
[2023-06-17] MEDS ORDERED: Atorvastatin 10 MG TAB PO SCH (00:15)
[2023-06-17] MEDS ORDERED: Glucagon 1 MG VIAL IM PRN (00:15)
[2023-06-17 01:48] LABS: BASO # 0.1 K/mm3 (0.0-0.2); BASO % 1.1 % (0.0-2.0); EOS # 0.3 K/mm3 (0.0-0.7); EOS % 2.3 % (0.0-4.0); GRAN # 9.2 K/mm3 (1.4-6.5); GRAN % 72.3 % (42.2-75.2); HEMOGLOBIN 10.2 g/dl (12.5-16.0); LYMPH # 1.9 K/mm3 (1.2-3.4); LYMPH % 15.3 % (20.0-51.0); MEAN CELL VOLUME 87 fl (80.0-100.0); MEAN CORPUSCULAR HEMOGLOBIN 29 pg (27-31); MEAN CORPUSCULAR HGB CONC 33 g/dl (33.0-37.0); MEAN PLATELET VOLUME 11.3 fl (7.4-10.4); MONO % 8.2 % (1.7-9.3); PLATELET COUNT 207 K/mm3 (130-400); RED BLOOD COUNT 3.55 M/mm3 (4.10-5.30); REDCELL DISTRIBUTION WIDTH-CV 14.5 % (11.5-14.5)
[2023-06-17 01:59] LABS: HEMATOCRIT 30.9 % (37.0-47.0)
[2023-06-17 02:09] LABS: CALCIUM 9.6 mg/dL (8.4-10.2); CREATININE, serum 1.53 mg/dL (0.57-1.11); POTASSIUM 4.6 mEq/L (3.5-4.5)
[2023-06-17 05:40] LABS: COLLECTION METHOD CLEAN CATCH
[2023-06-17 05:55] LABS: PH 6.5 (5.0-8.5); URINE APPEARANCE CLEAR (CLEAR/HAZY); URINE BLOOD NEGATIVE (NEGATIVE); URINE COLOR YELLOW (YELLOW); URINE GLUCOSE TRACE (NEGATIVE); URINE KETONE NEGATIVE (NEGATIVE); URINE NITRATE NEGATIVE (NEGATIVE); URINE PROTEIN(semi-quant) NEGATIVE (NEGATIVE); URINE UROBILINOGEN 0.2 E.U/dL (0.2-1.0)
--- NOTE | 2023-06-17 06:19 | NUR ---
PT ALERT AND ORIENTED. WAS TRANSPORTED TO THIS UNIT AROUND 2144 LAST NIGHT. PT IS WHEELCHAIR BOUND. SHE COMES FROM [facility] AND IS A 2 PERSON ASSIST TO TRANSFER. ON 3 LITERS NC AND HAS PATENT BILATERAL AC PERIPHERAL IVS PLACED IN ED. ASSESSED, MEDICATED PER EMAR. CALL LIGHT WITHIN REACH BED ALARM SET. ON HEPARIN GTT AT 14.5ML/HR.
[2023-06-17] MEDS ORDERED: Formoterol 20 MCG,Budesonide 0.5 MG IH SCH (07:00)
[2023-06-17] MEDS ORDERED: Insulin Lispro (HumaLOG) SQ SCH ×3 (08:00→12:00)
--- NOTE | 2023-06-17 08:20 | NUR ---
PATIENT ALERT AND ORIENTED X4. VSS. PATIENT HERE FOR PNA/WEAKNESS. PATIENT ON 3LNC. IV'S X2 TO LEFT AC AND RIGHT AC. HEP GTT RUNNING AT 14.5 INTO LEFT AC. NS RUNNING AT 60ML/HOUR INTO RIGHT AC. PATIENT DENIES ANY PAIN. RIGHT LOWER EXTREMITY WITH LATERAL HEALING WOUND WITH 4X4 AQUACELL APPLIED. PATIENT TOLERATING PO. NO FURTHER NEEDS. CALL LIGHT IN REACH. BED ALARM ON.
[2023-06-17] MEDS ORDERED: dexAMETHasone 10 MG/ML VIAL IV SCH (09:00)
[2023-06-17] MEDS ORDERED: Miconazole 2% Topical Powder BOTTLE TP SCH (09:00)
[2023-06-17] MEDS ORDERED: Cholecalciferol (Vit D3) 1000 Units TAB PO SCH (09:00)
[2023-06-17] MEDS ORDERED: Calcium Carbonate 500 MG TAB PO SCH (09:00)
[2023-06-17] MEDS ORDERED: traMADol 50 MG TAB PO SCH (09:00)
[2023-06-17] MEDS ORDERED: Fluticasone Nasal 50 MCG/Spray 16 GM BOTTLE NS SCH (09:00)
[2023-06-17] MEDS ORDERED: Loratadine 10 MG TAB PO SCH (09:00)
[2023-06-17] MEDS ORDERED: Nystatin Powder **** subs to Miconazole Powder TOP SCH (09:00)
--- NOTE | 2023-06-17 09:28 | NUR ---
police worker met with patient to discuss discharge planning. Pt reports she is from [facility]. She sees Dr. Carter and obtains medications from [facility] with no difficulties. She reports her daughter, Sybil [phone] as her contact. She believes she has a DPOA, listing her , but is not sure where it is at. Pt states she needs full assistance with ADLS and uses a wheelchair for DME. OWEN informed OWEN Canela (main OWEN) that pt has no pt/ot orders. OWEN called Lorri at [facility] to see if pt has a DPOA-HC. She reports she is not seeing one, but will call the house and have it faxed if they have one. Discharge Plan: return to [facility]
--- NOTE | 2023-06-17 09:57 | NUR ---
Initial visit; Patient thanked Closed Circuit Screen Watcher for coming in though stated quite assuredly that she "has her own Loan Counselor." Closed Circuit Screen Watcher smiled and said she was happy that patient had a pentecostalism home and wished her well and offered God's blessings. Leena thanked Closed Circuit Screen Watcher.
--- NOTE | 2023-06-17 11:18 | NUR ---
D: Initial visit: Finance Attorney stopped by room on rounds. A: Pt was resting and content. Pt has no needs right now. P: Finance Attorney informed pt that if she needed anything from the charge poster area to let her nurse know. Finance Attorney will follow up as needed.
[2023-06-17] MEDS ORDERED: Azithromycin 500 MG in NS 250 ML IV SCH (12:00)
--- NOTE | 2023-06-17 14:31 | NUR ---
concrete worker faxed clinical updates to [facility]. SW received faxed DPOA-HC listing pt's daughter and provided it to OWEN Canela. Discharge Plan: return to [facility]
[2023-06-17] MEDS ORDERED: Lutein 20 MG CAP PO SCH (17:00)
[2023-06-17] MEDS ORDERED: Magnesium Oxide 400 MG TAB PO SCH (17:00)
[2023-06-17] MEDS ORDERED: cefTRIAXone 2 G in Water For Injection,Sterile 20 ML IV SCH (18:00)
[2023-06-17] MEDS ORDERED: Vancomycin 1.25 GM,Special Dose/Pharmacy Prepared 1.25 GM in NS 250 ML IV SCH (19:15)
--- NOTE | 2023-06-17 20:00 | NUR ---
PATIENT RESTING IN BED. ALERT AND ORIENTED. SHIFT ASSESSMENT COMPLETE. RLE COVERED WITH JOSÉ MARTINEZ. CDI. SCDS ON. TELEMETRY IN PLACE. PATIENT C/O PAIN WITH INSPIRATION. VSS.
--- NOTE | 2023-06-17 21:45 | NUR ---
THIS NURSE ADMINISTERED HS MEDICATIONS. UPON ASSESSMENT, THIS NURSE NOTICED PAITENT WAS SOA. THIS NURSE APPLIED THE PULSE OX. O2 READING WAS 84% ON ROOM AIR. THIS NURSE APPLIED 3L OF O2, AND PATIENT'S O2 INCREASED TO 96%. ALL OTHER VSS. LUNGS CLEAR TO AUSCULTATION. WILL MONITOR
--- NOTE | 2023-06-17 22:32 | NUR ---
THIS NURSE ASSISTED PCT WITH BED CHANGE. PATIENT TOLERATED WELL. 02 AT BASELINE WITH 2L VIA NC.
[2023-06-18] VITALS (127 sets, daily range): BP systolic 102–184; BP diastolic 68–110; PULSE 83–106; TEMP 97.5–98.6; O2SAT 93–99
--- NOTE | 2023-06-18 05:14 | NUR ---
PATIENT CONTINUES TO COMPLAIN OF RIGHT SIDED PAIN WITH INSPIRATORY BREATHING. PATIENT STILL ON 2L O2 VIA NC. DR. ALMANZA NOTIFIED. NO NEW ORDERS AT THIS TIME.
[2023-06-18 06:45] LABS: MEAN CELL VOLUME 88 fl (80.0-100.0); MEAN CORPUSCULAR HGB CONC 32 g/dl (33.0-37.0); MEAN PLATELET VOLUME 11.5 fl (7.4-10.4); PLATELET COUNT 213 K/mm3 (130-400); RED BLOOD COUNT 3.33 M/mm3 (4.10-5.30); REDCELL DISTRIBUTION WIDTH-CV 14.7 % (11.5-14.5)
[2023-06-18 06:50] LABS: HEMATOCRIT 29.4 % (37.0-47.0); HEMOGLOBIN 9.5 g/dl (12.5-16.0); MEAN CORPUSCULAR HEMOGLOBIN 29 pg (27-31)
[2023-06-18 07:08] LABS: CALCIUM 9.6 mg/dL (8.4-10.2); CREATININE, serum 1.31 mg/dL (0.57-1.11); POTASSIUM 4.3 mEq/L (3.5-4.5)
[2023-06-18] MEDS ORDERED: predniSONE 20 MG TAB PO SCH (08:00)
[2023-06-18 08:07] LABS: BAND 4 % (0-10); LYMPHOCYTE 7 % (20.0-51.0); NEUTROPHILS 77 % (42.0-75.2); PLATELET ESTIMATE NORMAL (NORMAL)
--- NOTE | 2023-06-18 08:50 | NUR ---
PT LAYING IN BED UPON ENTERING. ASSESSMENT DONE, MEDS GIVEN PER ORDER. INT TO RIGHT AC PATENT, LEFT AC INT DIFFICULT TO FLUSH. PT ON 3L NASAL CANNULA. PUREWICK IN PLACE TO SUCTION. PT REPORTS ABDOMINAL PAIN RATING IT 8/10, SCHEDULED TRAMADOL GIVEN WITH MORNING MEDS. STAGE 1 PRESSURE INJURY TO RIGHT GLUTEAL FOLD. RIGHT FOOT WOUND WITH DRESSING THAT IS CLEAN DRY AND INTACT, BOOT IN PLACE. PT DENIES NEEDS AT THIS TIME. BED IN LOWEST POSITION, CALL LIGHT IN REACH, BED ALARM ON.
[2023-06-18] MEDS ORDERED: Pantoprazole 40 MG in NS 10 ML IV SCH (09:38)
[2023-06-18] MEDS ORDERED: HYDROmorphone 0.5 MG/0.5 ML SYRINGE IV PRN (10:15)
[2023-06-18] MEDS ORDERED: HYDROmorphone 0.5 MG/0.5 ML SYRINGE IV ONE (10:15)
--- NOTE | 2023-06-18 10:19 | NUR ---
PT REPORTS 7/10 PAIN IN ABDOMEN AND CHEST, AND RIGHT ARM. 1 DOSE OF NITRO GIVEN. DILAUDID AND PROTONIX ALSO GIVEN AT THIS TIME. LAB AT BEDSIDE AND RESPIRATORY NOTIFIED OF EKG ORDERED. PT DENIES NEEDS AT THIS TIME. BED IN LOWEST POSITION, CALL LIGHT IN REACH, BED ALARM ON
--- NOTE | 2023-06-18 10:48 | NUR ---
Attending Pathologist placed copy of DPOA-HC on patient's chart, which designates her daughter, Sybil. SW also contacted Lorri at [facility] and faxed clinical updates. Discharge Plan: [facility]
[2023-06-18 10:57] LABS: BILIRUBIN,TOTAL 0.2 mg/dL (0.2-1.2); TOTAL PROTEIN 7.4 g/dl (6.2-8.1)
[2023-06-18] MEDS ORDERED: Metoprolol Tartrate 25 MG TAB PO SCH (11:54)
[2023-06-18] MEDS ORDERED: Heparin/D5W 250 ML IV SCH (12:00)
[2023-06-18] MEDS ORDERED: Nitroglycerin 2% Topical Oint 1 GM UD TD SCH (12:00)
[2023-06-18] MEDS ORDERED: Heparin 5,000 UNITS/ML 1 ML VIAL IV PRN (12:00)
[2023-06-18 12:10] LABS: BILIRUBIN,DIRECT 0.2 mg/dL (0.0-0.5)
--- NOTE | 2023-06-18 12:25 | NUR ---
LAB CALLED AND NOTIFIED OF HEPARING DRIP PENDING HEPXA DRAW. THIS NURSE NOTIFIED THAT THEY ARE AWARE
[2023-06-18 13:19] LABS: PARTIAL THROMBOPLASTIN TIME 29.6 SECONDS (26.0-37.0)
--- NOTE | 2023-06-18 13:38 | NUR ---
HEPARIN BOLUS GIVEN AND HEPARIN DRIP STARTED AT 10 MLS/HR. HEPXA XA ORDERED FOR 193. PT DENIES PAIN AT THIS TIME. NITRO PASTE PLACED ON RIGHT UPPER CHEST
[2023-06-18] MEDS ORDERED: Iohexol 300 - 100 ML VIAL IV ONE (14:36)
[2023-06-18] MEDS ORDERED: NS 100 ML IV SCH (14:41)
--- NOTE | 2023-06-18 14:46 | NUR ---
HEPARIN DRIP RUNNING IN RIGH AC AT 10 MLS/HR. ANTIBIOTIC RUNNING AT 200 MLS/HR Y SITED INSTEAD OF 250 DUE TO PT REPORTING BURNING. SHORTLY AFTER PT CALLED AND REPORTS INCREASED PAIN AT SITE. YOON VACA, CALLED TO ASSIST IN PLACING IV. THIS NURSE CALLED AND NOTED WARMTH AND REDNESS TO RIGHT AC. HEPARIN STOPPED AND THIS TIME WITH IV ATTEMPTED.
--- NOTE | 2023-06-18 15:00 | NUR ---
IV PLACED TO LEFT AC BY YOON VACA. UPON ENTERING AUDIBLE WHEEZING HEARD. PTS FACE IS RED AND SHE STATES "IM HAVING TROUBLE BREATHING". PT CURRENTLY ON 2L NASAL CANNULA. VITALS TAKEN. BLOOD PRESSURE 184/92 ON SECOND TAKE AND 93%. PT PLACED ON OXYMASK 3L AND NOLA UPDATED ON PT STATUS. NO ORDERS AT THIS TIME. HEPARIN DRIP AND ANTIBIOTIC RESTARTED IN LEFT AC. IV TO RIGHT AC DISCONTINUED.
[2023-06-18] MEDS ORDERED: Ciprofloxacin 500 MG TAB PO SCH (15:17)
[2023-06-18] MEDS ORDERED: metroNIDAZOLE 250 MG TAB PO SCH (15:30)
[2023-06-18] MEDS ORDERED: Furosemide 40 MG TAB PO ONE (15:30)
--- NOTE | 2023-06-18 15:50 | NUR ---
ORAL MEDS GIVEN. PT REPORTS MILD ABDOMINAL PAIN AND DENIES NEEDING PRN AT THIS TIME. IV ANTIBITIOC DISCONTINUED, HEPARIN RUNNING PER ORDER. BED IN LOWEST POSITION, CALL LIGHT IN REACH, BED ALARM ON
[2023-06-18] MEDS ORDERED: Heparin 5,000 UNITS/ML 1 ML VIAL SQ SCH (16:00)
--- NOTE | 2023-06-18 17:25 | NUR ---
VITALS RECHECKED. BP 172/110, HR 88, RR 22, O2 97% ON 3L OXYMASK, TEMP 98.5. PT REPORTS SOME ABDOMINAL PAIN AT THIS TIME. DR SKELTON NOTIFIED AND GAVE THIS NURSE A VERBAL ORDER FOR HYDRALAZINE Q4 PRN FOR SBP > 170.
[2023-06-18] MEDS ORDERED: hydrALAZINE 20 MG/ML 1 ML VIAL IV PRN (17:30)
--- NOTE | 2023-06-18 17:53 | NUR ---
CRITICAL TROPONIN CALLED TO DR SKELTON
--- NOTE | 2023-06-18 18:26 | NUR ---
PT REPORTING CHEST PAIN. SKIN FLUSHED AND PT IS WARM. PT STATES "IM SO HOT I CANT STAY STILL". HOSPITALIST CALLED AND EK ORDERED, RESPIRATORY AT BEDSIDE. 2 DOSES OF NITRO GIVEN A THIS TIME.
--- NOTE | 2023-06-18 18:48 | NUR ---
DR ALMANZA AT BEDSIDE. PT REPORTING CHEST PAIN 8/10 AFTER 3 DOSES OF NITRO. HOSPITALIST TOLD THIS NURSE TO ORDER A NEW EKG. RESPIRATORY CALLED AND EKG ORDERED.
[2023-06-18] MEDS ORDERED: Nitroglycerin/D5W 250 ML IV SCH (19:30)
--- NOTE | 2023-06-18 20:15 | NUR ---
Patient cleaned up, new emily placed, purewick changed. Suction to purewick increased.
--- NOTE | 2023-06-18 20:16 | NUR ---
HEPXA 0.22. PER PROTOCOL HEPARIN DRIP INCREASED 1.5 MLS/HR. TRANSFER ORDERS IN PLACE AND THIS NURSE UNABLE TO SEE HEPARIN IN ORDERS TO CHANGE RATE. HEPARIN DRIP STILL ON APR. HOSPITALIST AND MYSQL DATABASE ADMINISTRATOR NOTIFIED THIS AND THIS NURSE TOLD NOT TO ACKNOWLEDGE TRANSFER ORDERS TO CHANGE RATE. THIS RN AND PAMELLA SANZ REVIEWING PROTOCOL AND BOTH AT BEDSIDE WHEN HEPARIN DRIP CHANGED FROM 10 MLS/HR TO 11.5 MLS/HR.
--- NOTE | 2023-06-18 20:35 | NUR ---
Report called to PAMELLA Kulkarni at this time. All quesions answered.
[2023-06-18] MEDS ORDERED: Insulin Glargine-ygfn (Lantus) SQ SCH (21:00)
--- NOTE | 2023-06-18 21:15 | NUR ---
Patient resting in bed with family at bedside. Rates pain at 8/10, scheduled pain meds given. Needs met. Medications given. Assessment complete. Patient transfering to ICU soon. Hoffman boots on. Call light and personal items in reach. Bed in low position and bed alarm on.
--- NOTE | 2023-06-18 21:29 | NUR ---
Patient left the unit at this time to go to ICU room 5. All belongings taken down with patient. ICU nurse aware of patient leaving the unit at this time.
--- NOTE | 2023-06-18 22:53 | NUR ---
Received report from PAMELLA Sanders from medical floor at 2036. Pt arrived on the unit at 2135. Pt's vitals were stable with pt on 3 L O2 via Oxymask. Pt denied CP upon arrival and stated she had some SOA. About 30 minutes later the pt stated that her CP was starting to come back a little and rated the pain at a 5 and stated it was sharp. Hospitalist notified and nitro drip started per protocol. Pt is alert and oriented x4. Pt's belongings came with pt during transfer which include her phone, customer service representative teacher, and clothes. Will continue with pt care.
[2023-06-19] VITALS (1116 sets, daily range): BP systolic 103–165; BP diastolic 49–92; PULSE 73–97; TEMP 97.8–98.9; O2SAT 66–100
[2023-06-19 02:32] LABS: MEAN CELL VOLUME 87 fl (80.0-100.0); MEAN CORPUSCULAR HGB CONC 33 g/dl (33.0-37.0); MEAN PLATELET VOLUME 11.6 fl (7.4-10.4); PLATELET COUNT 209 K/mm3 (130-400); RED BLOOD COUNT 3.26 M/mm3 (4.10-5.30); REDCELL DISTRIBUTION WIDTH-CV 15.2 % (11.5-14.5)
[2023-06-19 02:47] LABS: CREATININE, serum 1.31 mg/dL (0.57-1.11); POTASSIUM 3.9 mEq/L (3.5-4.5)
[2023-06-19 02:53] LABS: CALCIUM 9.8 mg/dL (8.4-10.2); HEMATOCRIT 28.5 % (37.0-47.0); HEMOGLOBIN 9.3 g/dl (12.5-16.0); MEAN CORPUSCULAR HEMOGLOBIN 29 pg (27-31)
[2023-06-19 03:21] LABS: LYMPHOCYTE 17 % (20.0-51.0); NEUTROPHILS 62 % (42.0-75.2); PLATELET ESTIMATE NORMAL (NORMAL)
[2023-06-19 03:22] LABS: ANISOCYTOSIS 1+
--- NOTE | 2023-06-19 06:43 | NUR ---
Pt has been sleeping most of the night. Pt's vitals were stable throughout the night with pt on 2L O2 via oxymask. Pt on nitro and heparin drip at this time. Pt states she still has some chest pain and rates it around a 4-5, sharp pain. Pt has a purewick in place and is sleeping in bed with call light within reach. Will give report to day shift nurse.
[2023-06-19] MEDS ORDERED: 1/2 NS 1,000 ML IV SCH ×2 (10:00→14:00)
--- NOTE | 2023-06-19 10:30 | NUR ---
Patient transported from ICU to label stamper. Patient slightly anxious about the procedure, but is alert and oriented and in no distress upon transfer. label stamper RN's at bedside and gave a detailed description of what to be expected during the procedure. Patient and family verbalized understanding.
--- NOTE | 2023-06-19 11:28 | NUR ---
See merge for all medication, assessment, intervention, and vital sign times.
[2023-06-19] MEDS ORDERED: Iohexol 350 - 100 ML VIAL INCOR ONE (11:31)
[2023-06-19] MEDS ORDERED: Nitroglycerin 2% Topical Oint 1 GM UD TD SCH (11:32)
[2023-06-19] MEDS ORDERED: niCARdipine (Cath Lab) 100 MCG/ML 10 ML VIAL IA SCH (11:34)
--- NOTE | 2023-06-19 11:39 | NUR ---
slag worker faxed clinical updates to [facility]. Discharge Plan: return to [facility]
[2023-06-19] MEDS ORDERED: Heparin 1,000 UNITS/ML 10 ML Multi-Dose VIAL IV SCH (11:40)
[2023-06-19] MEDS ORDERED: Midazolam 2 MG/2 ML VIAL IV SCH (11:42)
[2023-06-19] MEDS ORDERED: fentaNYL 50 MCG/ML 2 ML VIAL IV SCH (11:44)
--- NOTE | 2023-06-19 11:50 | NUR ---
Returned to the unit from [facility]. Alert and oriented and in no distress upon return. Cath site assessed; soft with no hematoma formation. Will continue to monitor.
--- NOTE | 2023-06-19 11:57 | NUR ---
Bedside report completed with Cayla NARAYAN. Call light within reach, first set of post op vitals reviewed, patient on 4lpm via oxymask, fluids clamped off, heparin and nitro gtt on standby, site intact. . Cayla Narayan denies questions concerns at this time. [phone] for questions.
--- NOTE | 2023-06-19 11:59 | NUR ---
Intra op vitals not completed, NIBP cuff was causing discomfort causing patient to move. Vitals pause with Dr. Burgos aware, NIBP resumed post procedure, patient tolerates better. Oxygen satuations maintained greater than 92% intraprocedure on BIPAP, HR remained between 60-80 bpm, respiratory rate between 20 and 30 breaths per minute.
--- NOTE | 2023-06-19 20:00 | NUR ---
TR BAND WAS COMPLETELY DEFLATED AT BEDSIDE SHIFT REPORT. SITE SOFT. BRUISE AT SITE. NO DISTRESS NOTED AT THIS TIME
--- NOTE | 2023-06-19 20:00 | NUR ---
PT IS STABLE ON ROUNDS. PT IS PLAYING GAMES ON HER PHONE. CONTINUE CHEST PAIN.
[2023-06-20] VITALS (664 sets, daily range): BP systolic 93–159; BP diastolic 47–77; PULSE 66–87; TEMP 97.8–98.9; O2SAT 85–100
--- NOTE | 2023-06-20 02:29 | NUR ---
PER REPORT PT IS STABLE. CARDIAC CATH - NO INTERVENTIONS. RIGHT RADIAL APPROACH. REMAINING AIR, 4 ML, REMOVED. PT HAS A BRUISE AT SITE. NO HEMATOMA NOTED.
--- NOTE | 2023-06-20 03:33 | NUR ---
SITE REMAINS UNCHANGED. CONTINUE WITH PLAN OF CARE.
--- NOTE | 2023-06-20 05:53 | NUR ---
PT STABLE ON ROUNDS. RESPIRATIONS EVEN AND UNLABORED. PT RESISTANT TO REPOSITIONING AFTER MIDNIGHT. NO SIGN OF DISTRESS AT THIS TIME. CONTINUE PLAN OF CARE.
--- NOTE | 2023-06-20 07:30 | NUR ---
Patient awake and resting in bed; reported that she "slept very well" last night. Assisted with repositioning and provided phone for patient to call breakfast. Reports intermittent chest pain with coughing or deep breaths which is unchanged since yesterday. VS stable. Call light left within reach.
[2023-06-20 07:41] LABS: MEAN CELL VOLUME 88 fl (80.0-100.0); MEAN CORPUSCULAR HGB CONC 33 g/dl (33.0-37.0); MEAN PLATELET VOLUME 11.4 fl (7.4-10.4); PLATELET COUNT 186 K/mm3 (130-400); RED BLOOD COUNT 3.25 M/mm3 (4.10-5.30); REDCELL DISTRIBUTION WIDTH-CV 15.2 % (11.5-14.5)
[2023-06-20 07:42] LABS: HEMATOCRIT 28.6 % (37.0-47.0); HEMOGLOBIN 9.3 g/dl (12.5-16.0); MEAN CORPUSCULAR HEMOGLOBIN 29 pg (27-31)
[2023-06-20 10:35] LABS: CALCIUM 9.3 mg/dL (8.4-10.2); CREATININE, serum 1.33 mg/dL (0.57-1.11); POTASSIUM 3.7 mEq/L (3.5-4.5)
--- NOTE | 2023-06-20 10:37 | NUR ---
Report received from Sylvain Kulkarni.Pt awake, alert answers questions appropriately to this nurse.Bedside hygiene completed by both nurses.Dr martell in to see pt. Will continue to monitor.
[2023-06-20] MEDS ORDERED: Sucralfate 1 G TAB PO SCH ×2 (13:23→16:30)
[2023-06-20] MEDS ORDERED: Furosemide 20 MG TAB PO SCH (13:30)
[2023-06-20] MEDS ORDERED: Losartan 50 MG TAB PO SCH (17:00)
--- NOTE | 2023-06-20 18:06 | NUR ---
Report called to PAMELLA Leon.
--- NOTE | 2023-06-20 18:28 | NUR ---
Pt arrived to surgical floor from ICU by bed. Report received from APPLIED PSYCHOLOGY CHAIR Keya. Oriented pt to room and call light. Pt is alert and oriented x4. Oxygen in place at 1L NC with no irritation to the nares. Purewick in place for incontinence. Heel boot in place on Rt foot per wound care orders. Call light within reach.
--- NOTE | 2023-06-20 18:29 | NUR ---
Pt transferred to room 346,handoff report to PAMELLA Leon.
--- NOTE | 2023-06-20 21:00 | NUR ---
PT A&O X4 LAYING IN BED. VSS ON 1L/NC. GAVE SCHEDULED NORCO PER APR FOR PAIN 07/28 TO ABD & PLEURAL CP. PT DENYING SOA AT THIS TIME. WOUND CARE DRSG IN PLACE TO RT FOOT CDI & PRIMO BOOT ON. PUREWICK TO SUCTION WITH YELLOW OUTPUT. INT TO LEFT AC PATENT. PT DENYING FURTHER NEEDS. CALL LIGHT IN REACH
[2023-06-21 03:46] VITALS: BP 131/75; PULSE 68; TEMP 98.2
--- NOTE | 2023-06-21 05:58 | NUR ---
PT RESTING IN BED WITH UNLABORED RESP. DENIES FURTHER NEEDS THIS MORNING. CALL LIGHT IN REACH
[2023-06-21 07:47] LABS: BASO % 0.1 % (0.0-2.0); EOS # 0.1 K/mm3 (0.0-0.7); GRAN # 5.4 K/mm3 (1.4-6.5); GRAN % 55.5 % (42.2-75.2); LYMPH # 2.3 K/mm3 (1.2-3.4); LYMPH % 23.3 % (20.0-51.0); MEAN CELL VOLUME 89 fl (80.0-100.0); MEAN CORPUSCULAR HGB CONC 32 g/dl (33.0-37.0); MEAN PLATELET VOLUME 12.2 fl (7.4-10.4); MONO # 1.8 K/mm3 (0.1-0.6); MONO % 18.8 % (1.7-9.3); PLATELET COUNT 187 K/mm3 (130-400); RED BLOOD COUNT 3.24 M/mm3 (4.10-5.30)
[2023-06-21 07:49] LABS: HEMATOCRIT 28.7 % (37.0-47.0); HEMOGLOBIN 9.2 g/dl (12.5-16.0); MEAN CORPUSCULAR HEMOGLOBIN 28 pg (27-31)
[2023-06-21 08:00] VITALS: BP 149/54; PULSE 73; TEMP 97.8
[2023-06-21 08:06] LABS: ALBUMIN 2.7 g/dL (3.4-4.8); CALCIUM 9.2 mg/dL (8.4-10.2); CREATININE, serum 1.32 mg/dL (0.57-1.11); POTASSIUM 3.5 mEq/L (3.5-4.5)
[2023-06-21 08:31] LABS: MAGNESIUM 2.1 mg/dL (1.6-2.6)
--- NOTE | 2023-06-21 08:45 | NUR ---
Patient alert and oriented. Chronic back and leg pain. Scheduled medication as ordered. Adriana Lee updated on patient increased discomfort after eating and how patient described and suggested as indigestion. Tums ordered and given to patient. Patient able to take all po medication and breakfast without nausea. Assesment completed and gaymar boot on right foot with dressing CDI. Int. Scds. Will monitor.
[2023-06-21] MEDS ORDERED: FLAGYL500 MG PO (09:01)
[2023-06-21] MEDS ORDERED: COZAAR100 MG PO (09:03)
[2023-06-21] MEDS ORDERED: PROAIR HFA0.09 MG/AC IH (09:05)
[2023-06-21] MEDS ORDERED: TUMS500 MG PO (09:07)
[2023-06-21] MEDS ORDERED: PROTONIX 40MG T40 MG PO (09:07)
[2023-06-21] MEDS ORDERED: CIPRO 500MG TA500 MG PO (09:11)
--- NOTE | 2023-06-21 10:44 | NUR ---
Patient sitting up in chair, therapy assisted patient to chair. Patient reports feeling much better after TUMS, the discomfort she was feeling in gone, update given to Adriana Lee. Social work assisting with discharge planning.
[2023-06-21 11:03] VITALS: BP 118/76; PULSE 59; TEMP 97.5
--- NOTE | 2023-06-21 11:07 | NUR ---
labor relations worker attended clinical rounding and was informed pt can discharge today. OWEN faxed updates and discharge orders to [facility]. Lorri accepted pt for transport at 11:45am. OWEN informed PAMELLA Hernandez and wrote the time on the white board. OWEN met with pt and completed IM from Medicare. Pt signed and verbalized understanding. Copy provided and original in chart. Discharge Plan: [facility] 11:45am
--- NOTE | 2023-06-21 12:15 | NUR ---
Patient to [facility] with transporation. Patient dressed and provided with bed bath and dressed in clothes she had in closet. pericares given with rohith on. Report called to nurse. no questions at this time
== END 2023-06-21 12:19 | DRG 871 ==
LOC: COL.ER 17:36 → MEDICAL 19:28 → ICU 06-18 20:59 → SURG 06-20 18:19
PROVIDERS: Emergency Medicine; Internal Medicine; Nurse Practitioner Family; Physician Assistant; ADMIT Internal Medicine
PROC: 4A023N7 Measurement of Cardiac Sampling and Pressure, Left Heart, Percutaneous Approach (ICD-10-PCS; principal; 2023-06-19)
PROC: B2111ZZ Fluoroscopy of Multiple Coronary Arteries using Low Osmolar Contrast (ICD-10-PCS; 2023-06-19)
PROC: 5A09357 Assistance with Respiratory Ventilation, Less than 24 Consecutive Hours, Continuous Positive Airway Pressure (ICD-10-PCS; 2023-06-19)
DX: A41.9 Sepsis, unspecified organism (principal); I21.A1 Myocardial infarction type 2; L89.513 Pressure ulcer of right ankle, stage 3; J96.01 Acute respiratory failure with hypoxia; J18.9 Pneumonia, unspecified organism; J44.0 Chronic obstructive pulmonary disease with (acute) lower respiratory infection; J44.1 Chronic obstructive pulmonary disease with (acute) exacerbation; L03.115 Cellulitis of right lower limb; N17.9 Acute kidney failure, unspecified; K57.32 Diverticulitis of large intestine without perforation or abscess without bleeding; N18.4 Chronic kidney disease, stage 4 (severe); J90 Pleural effusion, not elsewhere classified; Z66 Do not resuscitate; E03.9 Hypothyroidism, unspecified; G89.29 Other chronic pain; M54.9 Dorsalgia, unspecified; Z20.822 Contact with and (suspected) exposure to COVID-19; F32.A Depression, unspecified; I12.9 Hypertensive chronic kidney disease with stage 1 through stage 4 chronic kidney disease, or unspecified chronic kidney disease; E11.22 Type 2 diabetes mellitus with diabetic chronic kidney disease; D64.9 Anemia, unspecified; E87.5 Hyperkalemia; K21.9 Gastro-esophageal reflux disease without esophagitis; I44.0 Atrioventricular block, first degree; E11.40 Type 2 diabetes mellitus with diabetic neuropathy, unspecified; E78.5 Hyperlipidemia, unspecified; Z96.643 Presence of artificial hip joint, bilateral; I05.0 Rheumatic mitral stenosis; Z86.73 Personal history of transient ischemic attack (TIA), and cerebral infarction without residual deficits; Z90.49 Acquired absence of other specified parts of digestive tract; Z90.89 Acquired absence of other organs; Z99.81 Dependence on supplemental oxygen; Z88.6 Allergy status to analgesic agent; Z88.5 Allergy status to narcotic agent; Z88.0 Allergy status to penicillin; Z88.2 Allergy status to sulfonamides; Z88.8 Allergy status to other drugs, medicaments and biological substances; Z79.890 Hormone replacement therapy; Z79.4 Long term (current) use of insulin; Z79.899 Other long term (current) drug therapy; Z88.4 Allergy status to anesthetic agent; Z23 Encounter for immunization
CPT/HCPCS: A9540-JZ; A9567-JZ; C1769; C9113; J0360; J0456; J0692; J0696; J1100; J1170; J1644; J1815; J2250; J2305; J2404; J2919; J3010; J3370; J7030; J7040; J7050; J7512; Q9967

== ENCOUNTER 2023-07-04 16:11 | Inpatient (IN) | payer MEDICARE, BC, MEDICAID ==
[~2023-07-04 16:11] MED LIST changes: +CALCIUM 600600 MG PO; +CENTRUM SILVER1 TAB PO; +CIPRO 500MG TA500 MG PO; +COZAAR 50MG50 MG/TAB PO; +COZAAR100 MG PO; +DULCOLAX S10 MG/SUPP RC; +EXPECTORANT DM120 ML PO; +FLAGYL500 MG PO; +HUMALOG KW200 UNIT/1 SQ; +IMODIUM 2MG CAPS2 MG PO; +INSULIN LI100 UNIT/2; +LASIX 20MG TABL20 MG PO; +LYRICA 75MG CAP75 MG PO; +MAG-OX 400400 MG/TAB PO; +MASON NATURAL2000 IU PO; +MILK OF MA400 MG/52 PO; +MYLANTA MAXIMU355 M1 PO; +NORCO 325 MG-51 TAB PO; +NYSTATIN POWDER15 GM TOP; +ORAL PAIN REL9.35 GM MM; +PROAIR HFA0.09 MG/AC IH; +PROTONIX 40MG T40 MG PO; +RT ADVAIR HFA 1112 G; +RT ADVAIR HFA 1112 G IH; +SYSTANE BALANCE10 M1 OP; +TUMS500 MG PO; +TYLENOL 325MG325 MG PO; +TYLENOL SU650 MG/SUP RC; +ZOFRAN 4MG T4 MG/TAB PO
[2023-07-05] MEDS ORDERED: Lidocaine PF 2% (20 MG/ML) 5 ML VIAL ONE (11:08)
[2023-08-08] MEDS ORDERED: LIPITOR 10MG10 MG PO (12:21)
[2023-08-08] MEDS ORDERED: CENTRUM SILVER1 CTB PO (12:22)
[2023-08-08] MEDS ORDERED: FLONASEALLERGY NS (12:23)
[2023-08-08] MEDS ORDERED: HUMALOG100 U/ML SQ ×2 (12:31→12:33)
[2023-08-08] MEDS ORDERED: LUTEIN20 M1 PO (12:37)
[2023-08-08] MEDS ORDERED: MAG-OX 400400 MG/TAB PO (12:38)
[2023-08-08] MEDS ORDERED: OSCAL 500 TAB500 MG PO (12:39)
[2023-08-08] MEDS ORDERED: PROTONIX 40MG T40 MG PO (12:39)
== END 2023-07-28 12:45 | DRG 282 ==
LOC: COL.ER 16:11 → ICU 18:10 → MEDICAL 07-06 12:00
PROVIDERS: ADMIT Internal Medicine
PROC: 5A2204Z Restoration of Cardiac Rhythm, Single (ICD-10-PCS; principal; 2023-07-04)
DX: I48.91 Unspecified atrial fibrillation (principal); I21.A1 Myocardial infarction type 2; I10 Essential (primary) hypertension; J44.9 Chronic obstructive pulmonary disease, unspecified; E78.5 Hyperlipidemia, unspecified; E11.9 Type 2 diabetes mellitus without complications; Z79.4 Long term (current) use of insulin; E03.9 Hypothyroidism, unspecified; N18.32 Chronic kidney disease, stage 3b; D63.1 Anemia in chronic kidney disease; K21.9 Gastro-esophageal reflux disease without esophagitis; L89.519 Pressure ulcer of right ankle, unspecified stage
CPT/HCPCS: J2704

== ENCOUNTER 2023-08-08 13:36 | Day surgery (SDC) | payer MEDICARE, BC, MEDICAID ==
[~2023-08-08] VITALS: Ht 160 cm; Wt 78.6 kg
[~2023-08-08 13:36] MED LIST changes: +CENTRUM SILVER1 CTB PO; +FLONASEALLERGY NS; +HUMALOG100 U/ML SQ; +LIPITOR 10MG10 MG PO; +LR 1,000 ML IV SCH; +OSCAL 500 TAB500 MG PO; +Ondansetron 4 MG/2 ML VIAL IV PRN
[2023-08-08 15:31] VITALS: BP 132/54; PULSE 81; TEMP 97.6
--- NOTE | 2023-08-08 15:43 | NUR ---
ADMITTED TO BAY 3 PER WHEELCHAIR AND PATIENT ORIENTED TO ROOM. VOICES UNDERSTANDING OF PROCEDURES AND CONSENT SIGNED. ASSISTED ONTO CART. PATIENT HAD BEEN INCONTINENT OF LIQUID STOOL WITH AND INCONTINENT CARES DONE. IVF STARTED AND READIED FOR EGD/COLONOSCOPY. PATIENT WAS INCONTINENT A SECOND TIME OF LOOSE DARK BROWN STOOL. STATES SHE IS UNALBE TO CONTROL HER BOWELS. CALL LIGHT IN REACH AND SIDERAILS UP X2 ON CART.
[2023-08-08 16:05] VITALS: BP 138/66; PULSE 76; TEMP 97.6
[2023-08-08 16:15] VITALS: BP 141/80; PULSE 75
[2023-08-08 16:30] VITALS: BP 149/63; PULSE 76
--- NOTE | 2023-08-08 17:26 | NUR ---
1605 Received report fromPAMELLA Vick. Patient returned to bay 3. Patient is alert and answers questions appropriately. 1608 Patient given a muffin and juice for a PO challenge. Tolerated well. 1635 Dr. Mccord in room to update the patient and her daughter on results and plan for care. 1648 Physician discharge instructions and printed patient educational materials reviewed with the patient and her daughter. Questions invited and answered. 1655 Report called to PAMELLA Clements at [facility]. 1715 Patient to lobby via wheelchair for a ride home with [facility].
== END 2023-08-08 17:15 ==
LOC: SDCO 13:36
DX: K51.90 Ulcerative colitis, unspecified, without complications (principal); K29.30 Chronic superficial gastritis without bleeding; K21.9 Gastro-esophageal reflux disease without esophagitis; D12.0 Benign neoplasm of cecum; K57.32 Diverticulitis of large intestine without perforation or abscess without bleeding; K57.30 Diverticulosis of large intestine without perforation or abscess without bleeding; E11.319 Type 2 diabetes mellitus with unspecified diabetic retinopathy without macular edema; E11.22 Type 2 diabetes mellitus with diabetic chronic kidney disease; I12.9 Hypertensive chronic kidney disease with stage 1 through stage 4 chronic kidney disease, or unspecified chronic kidney disease; N18.30 Chronic kidney disease, stage 3 unspecified; G62.9 Polyneuropathy, unspecified; E66.9 Obesity, unspecified; Z68.31 Body mass index [BMI] 31.0-31.9, adult; Z79.4 Long term (current) use of insulin
CPT/HCPCS: J2704; J7120

== ENCOUNTER 2023-12-18 21:32 | Inpatient (IN) | payer MEDICARE, BC, MEDICAID ==
[~2023-12-18] VITALS: Ht 162.6 cm; Wt 89.8 kg
[~2023-12-18 21:32] MED LIST changes: -LR 1,000 ML IV SCH; -Ondansetron 4 MG/2 ML VIAL IV PRN
[2023-12-18 21:52] LABS: MEAN CELL VOLUME 85 fl (80.0-100.0); MEAN CORPUSCULAR HGB CONC 32 g/dl (33.0-37.0); MEAN PLATELET VOLUME 11.2 fl (7.4-10.4); PLATELET COUNT 283 K/mm3 (130-400); RED BLOOD COUNT 3.06 M/mm3 (4.10-5.30); REDCELL DISTRIBUTION WIDTH-CV 15.3 % (11.5-14.5)
[2023-12-18 21:56] LABS: HEMATOCRIT 26.1 % (37.0-47.0); HEMOGLOBIN 8.4 g/dl (12.5-16.0); MEAN CORPUSCULAR HEMOGLOBIN 27 pg (27-31)
[2023-12-18 22:00] LABS: INR 1.6 (0.8-3.0); PROTHROMBIN TIME 17.5 SECONDS (9.7-12.8)
[2023-12-18 22:12] LABS: ALBUMIN 3.3 g/dL (3.4-4.8); BILIRUBIN,TOTAL 0.3 mg/dL (0.2-1.2); CALCIUM 9.7 mg/dL (8.4-10.2); CREATININE, serum 1.24 mg/dL (0.57-1.11); POTASSIUM 4.2 mEq/L (3.5-4.5); TOTAL PROTEIN 7.8 g/dl (6.2-8.1)
[2023-12-18] MEDS ORDERED: Mag/Al Hydrox/Simeth Susp 30 ML CUP PO ONE (22:15)
[2023-12-18 22:17] LABS: TROPONIN-I 0.031 ng/mL (0.00-0.033)
[2023-12-18 22:18] LABS: BAND 2 % (0-10); EOSINOPHIL 2 % (0-4); HYPOCHROMIA 1+; LYMPHOCYTE 25 % (20.0-51.0); MYELOCYTE 1 % (0-0); NEUTROPHILS 56 % (42.0-75.2); PLATELET ESTIMATE NORMAL (NORMAL)
[2023-12-19] VITALS (11 sets, daily range): BP systolic 107–135; BP diastolic 61–76; PULSE 67–89; TEMP 96.8–98.1
[2023-12-19] MEDS ORDERED: traMADol 50 MG TAB PO ONE (00:15)
[2023-12-19] MEDS ORDERED: Ondansetron 4 MG/2 ML VIAL IV ONE (01:15)
[2023-12-19] MEDS ORDERED: Acetaminophen 500 MG TAB PO PRN (01:45)
[2023-12-19] MEDS ORDERED: HYDROmorphone 0.5 MG/0.5 ML SYRINGE IV PRN (02:00)
[2023-12-19] MEDS ORDERED: LIPITOR 40MG TA40 MG PO (04:49)
[2023-12-19] MEDS ORDERED: ASPIRIN E.C. 8181 MG PO (04:54)
[2023-12-19] MEDS ORDERED: ELIQUIS 5MG PO (04:56)
[2023-12-19] MEDS ORDERED: INSULIN GL100 UNIT/2 SQ (05:00)
[2023-12-19] MEDS ORDERED: SYNTHROID0.05 MG/TA PO (05:01)
[2023-12-19] MEDS ORDERED: PROTONIX20 MG PO (05:02)
[2023-12-19] MEDS ORDERED: NATURAL E400 IU PO (05:03)
[2023-12-19] MEDS ORDERED: ALL DAY ALLERGY10 M3 PO (05:03)
[2023-12-19] MEDS ORDERED: LYRICA200 MG PO (05:04)
[2023-12-19] MEDS ORDERED: 00186-0370-20 IH (05:05)
[2023-12-19] MEDS ORDERED: SENOKOT8.6 MG PO (05:06)
[2023-12-19] MEDS ORDERED: TESSALON P100 MG/CAP PO (05:07)
[2023-12-19] MEDS ORDERED: MIRALAX119G PO (05:08)
[2023-12-19] MEDS ORDERED: NYSTATIN OR100 MU/ML PO (05:08)
[2023-12-19] MEDS ORDERED: NYSTATIN100000 U/1 TOP (05:10)
[2023-12-19] MEDS ORDERED: ZOFRAN 4MG T4 MG/TAB PO (05:10)
--- NOTE | 2023-12-19 05:24 | NUR ---
patient arrived from ED at 0230, alert and oriented x4. med rec performed to best of ability based on provided paperwork from longterm and previous prescription pick ups, pt unaware of current medications taken. reports nonradiating chest pain rated 8/10, dilaudid given, pt refusing nitro stating "didn't work in the ER". upon reassessment chest pain rated 9/10, pt noted to be lying still using tablet with calm demeanor during this time, tylenol given per request. Iv in LAC is patent, site CDI. small closed dry ulcer on right inner butt cheek, pillow placed under right buttock/hip, small pustule noted on outer malleolous with accuacel dressing in place, small pus like drainage noted, dressing CDI, heel boot in place on right heel. no additional remarkable skin findings. 0234- BALTAZAR Jackson notified for clarification of diet order, NPO status in place, pt aware. 0433- BALTAZAR Jackson notified of critical trending down troponin. pt pivot transfered from ED bed to floor bed x1 assist. fall precautions in place, call light within reach. pt has no further needs, questions or concerns at this time.
[2023-12-19] MEDS ORDERED: Formoterol 20 MCG,Budesonide 0.5 MG IH SCH (07:00)
--- NOTE | 2023-12-19 07:48 | NUR ---
CARDIOLOGY TINT LAYER NOTIFIED OF NEW CONSULT.
[2023-12-19] MEDS ORDERED: Furosemide 20 MG TAB PO SCH (09:00)
[2023-12-19] MEDS ORDERED: Loratadine 10 MG TAB PO SCH (09:00)
[2023-12-19] MEDS ORDERED: Apixaban 5 MG TABLET PO SCH (09:00)
[2023-12-19] MEDS ORDERED: Fluticasone Nasal 50 MCG/Spray 16 GM BOTTLE NS SCH (09:00)
[2023-12-19 09:46] LABS: CHOLESTEROL RISK RATIO 2.8
--- NOTE | 2023-12-19 10:11 | NUR ---
Initial visit; Patient very pleasant and thanked Release Of Information Specialist for looking in on her and visiting. Patient requested that Release Of Information Specialist keep her in her prayers and Release Of Information Specialist offered her God's blessings.
[2023-12-19] MEDS ORDERED: Amiodarone 200 MG TAB PO SCH (10:29)
--- NOTE | 2023-12-19 10:51 | NUR ---
SW met with patient to complete initial assessment for discharge planning. Patient confirmed that she lives at [facility] for the past 3 years. Patient lists her daughter Sybil Vera ([phone]) as her DPOA. Patient sees Dr. Bonnie Carter as her PCP and uses [facility] or [facility] pharmacy without difficulty. Patient states she is wheelchair bound at baseline. Plan is to return to [facility] when medically stable. Discharge plan: LT
--- NOTE | 2023-12-19 10:55 | NUR ---
PATIENT AWARE OF CARE PLAN. PO MEDS CLEARED BY CARDIOLOGY TO BE GIVEN. PATIENTS CALL LIGHT WTIHIN REACH, FALL PRECAUTIONS IN PLACE, SHE DENIES ANY NEEDS AT THIS TIME. WARM COMPRESS PLACED TO CHEST ORDERED BY CARDIOLOGY.
[2023-12-19] MEDS ORDERED: Mag/Al Hydrox/Simeth Susp 30 ML CUP PO PRN (11:30)
[2023-12-19] MEDS ORDERED: Polyethylene Glycol 3350 17 GM PDS PO PRN (11:30)
[2023-12-19] MEDS ORDERED: Insulin Lispro (HumaLOG) SQ SCH (12:00)
[2023-12-19] MEDS ORDERED: Albuterol/Ipratropium 3 MG-0.5 MG/3 ML Neb Soln IH PRN (13:15)
[2023-12-19] MEDS ORDERED: Dextrose 50% Water 25 GM/50 ML SYRINGE IV PRN (18:00)
[2023-12-19] MEDS ORDERED: Dextrose (Glucose) 15 GM (4 x 3.75 GM) Chewable TABLET PACK PO PRN (18:00)
[2023-12-19] MEDS ORDERED: Glucagon 1 MG VIAL IM PRN (18:00)
--- NOTE | 2023-12-19 18:08 | NUR ---
CONSTANTINE COMPLAINING OF NINE OUT OF TEN PAIN TO THE CENTER OF HER CHRISTIANO, PATIENT DESCRIBES IT CONSTANT SHARP PAIN THAT DOES NOT RADIATE. PATIENT DENIES ANY SOB. PO TYLENOL GIVEN AND SUBLINGUAL NITRO GIVEN. PATIENT GRIMACES ONLY WHEN RN STEPS AWAY. WHEN SHE HAS HER HAND HELD SHE STOPS AND SPEAK WITH RN.
[2023-12-19] MEDS ORDERED: HYDROmorphone 0.5 MG/0.5 ML SYRINGE IV ONE ×2 (18:30→19:00)
--- NOTE | 2023-12-19 18:30 | NUR ---
NIGHT MD CALLED AND INFORMED OF PATIENT STATUS (SEE PREVIOUS NOT FOR DETAILS, MD INFORMED NITRO SL GIVIN X2 WITH NO IMPROVEMENT IN CHEST PAIN. PER MD GIVE PATIENT DILAUDID 0.25MG IV NOW X1 ONE.
--- NOTE | 2023-12-19 18:34 | NUR ---
PATIENT NO LONGER GRIMACING IN PAIN. HER BREAKFAST ARRIVED AND SHE REQUESTED TO BE SAT UP FOR DINNER. PATIENT IS AWAKE AND ALERT SITITNG UP IN BED. WARM COMPRESS TO THE CHEST ( ORDERED BY CARDIOLOGY TODAY), VITAL SIGNS ARE STABLE, CALL LIGHT WITHIN REACH, FALL PRECAUTIONS IN PLACE.
--- NOTE | 2023-12-19 18:55 | NUR ---
WAS NOTIFIED CONSTANTINE WAS HAVING UNRELENTING CHEST PAIN AFTER 4 DOSES OF MEDICATION (SEE EMAR). PER JENELLE DO EKG NOW AND STAT TROPONIN. RESPIRATROY THERAPY AND LAB CALLED NOW [facility] ARE AWARE OF NEW ORDERS
[2023-12-19] MEDS ORDERED: Atorvastatin 40 MG TAB PO SCH (21:00)
[2023-12-19] MEDS ORDERED: Insulin Glargine-ygfn (Lantus) SQ SCH (21:00)
[2023-12-19] MEDS ORDERED: Pregabalin 150 MG CAP PO SCH (21:00)
[2023-12-19] MEDS ORDERED: Atorvastatin 10 MG TAB PO SCH (21:00)
[2023-12-19] MEDS ORDERED: Magnesium Oxide 400 MG TAB PO SCH (21:00)
[2023-12-19] MEDS ORDERED: PREGABALIN PO SCH (21:00)
[2023-12-20] VITALS (22 sets, daily range): BP systolic 110–166; BP diastolic 61–88; PULSE 64–79; TEMP 97.4–98.7
[2023-12-20 04:31] LABS: BASO # 0.1 K/mm3 (0.0-0.2); BASO % 0.7 % (0.0-2.0); EOS # 0.2 K/mm3 (0.0-0.7); EOS % 2.3 % (0.0-4.0); GRAN % 48.3 % (42.2-75.2); LYMPH # 2.7 K/mm3 (1.2-3.4); LYMPH % 32.4 % (20.0-51.0); MEAN CELL VOLUME 86 fl (80.0-100.0); MEAN CORPUSCULAR HGB CONC 31 g/dl (33.0-37.0); MEAN PLATELET VOLUME 10.9 fl (7.4-10.4); MONO # 1.3 K/mm3 (0.1-0.6); MONO % 16.1 % (1.7-9.3); PLATELET COUNT 255 K/mm3 (130-400); RED BLOOD COUNT 2.72 M/mm3 (4.10-5.30); REDCELL DISTRIBUTION WIDTH-CV 15.4 % (11.5-14.5)
[2023-12-20 04:33] LABS: HEMATOCRIT 23.3 % (37.0-47.0); HEMOGLOBIN 7.2 g/dl (12.5-16.0); MEAN CORPUSCULAR HEMOGLOBIN 26 pg (27-31)
[2023-12-20 04:46] LABS: CALCIUM 8.7 mg/dL (8.4-10.2); CREATININE, serum 1.36 mg/dL (0.57-1.11); POTASSIUM 4.2 mEq/L (3.5-4.5)
--- NOTE | 2023-12-20 05:30 | NUR ---
ASSESSMENT COMPLETE FOR PHYSIOTHERAPY PRACTICE MANAGER. AT SHIFT CHANGE, pt WAS COMPLAINING OF CHEST PAIN. HOSPITAIST ORDERED AN EKG AND TROPONIN (THROUGH DAYSHIFT RN). pt GIVEN HER SCHEDULED LYRICA AND NORCO. pt HAD NO MORE COMPLAINTS OF CHEST PAIN THE REST OF THE SHIFT. VSS. pt DENIED ANY OTHER PAIN, SOB, N,V,D OR DIZZINESS. pt SLEPT THE REST OF THE SHIFT. pt NPO AT MIDNIGHT. FALL PRECAUTIONS IN PLACE. BED ALARM ON. CALL LIGHT WITHIN REACH.
--- NOTE | 2023-12-20 07:30 | NUR ---
Bedside report received from PAMELLA Yin. Pt resting in bed with eyes closed and no complaints. Call light within reach and fall precautions in place.
[2023-12-20] MEDS ORDERED: Apixaban 5 MG TABLET PO SCH (09:00)
[2023-12-20 09:24] LABS: RETIC # 0.11 M/mm3 (0.02-0.16); RETIC % 3.9 % (0.5-3.52)
[2023-12-20] MEDS ORDERED: Regadenoson 0.08 MG/ML 5 ML SYRINGE IV SCH (09:55)
--- NOTE | 2023-12-20 12:30 | NUR ---
Blood transfusion intiaited into Lt AC per orders. Consent obtained, blood verified with PAMELLA Quintanilla. VSS. Remained at pt bedside for first fifteen mintues of transfusion. No signs or symptoms of transfusion reaction noted. Shift assessment completed. Pt has complaints of pain rating 7/10. PRN Tylenol administered as ordered. Pt has no request at this time. Call light within reach and fall precautions in place.
--- NOTE | 2023-12-20 12:45 | NUR ---
[employer] faxed updates to [facility] at [facility].
--- NOTE | 2023-12-20 14:10 | NUR ---
Dr. Caal notified about pt complaints of chest pain. Dr. Caal instructed this nurse to notify cardiology. Cardiology paged, awaiting a call back. Heat pack placed to area of pain per additional nursing order.
--- NOTE | 2023-12-20 14:50 | NUR ---
Pt has complaints of pain at IV insertion site. IV site assessed and purple colored bruising noted to IV site. Blood transfusion completed. VSS. IV site discontinued with tip intact. Pressure held to IV site due to bleeding. ALMA wrap placed to site and heat pack placed. Pt has no other request at this time. Call light within reach.
--- NOTE | 2023-12-20 16:29 | NUR ---
PAMELLA Quintanilla started 22g IV into Rt forearm x1 attempt. Pt tolerated well with no complaints.
[2023-12-20 16:55] LABS: HEMATOCRIT 24.8 % (37.0-47.0); HEMOGLOBIN 7.9 g/dl (12.5-16.0)
--- NOTE | 2023-12-20 20:55 | NUR ---
PATIENT RESTING IN BED WATCHING TV. REPORTING DISCOMFORT IN HER CHEST WELL IN THE LEFT ARM. CALL LIGHT WITHIN REACH. BED IS LOCKED AND IN LOW POSITION WITH BED ALARM ON.
[2023-12-21] VITALS (19 sets, daily range): BP systolic 117–158; BP diastolic 5–87; PULSE 61–80; TEMP 97.6–98.3
[2023-12-21 05:32] LABS: MEAN CELL VOLUME 85 fl (80.0-100.0); MEAN CORPUSCULAR HGB CONC 32 g/dl (33.0-37.0); PLATELET COUNT 271 K/mm3 (130-400); RED BLOOD COUNT 2.71 M/mm3 (4.10-5.30); REDCELL DISTRIBUTION WIDTH-CV 15.4 % (11.5-14.5)
[2023-12-21 05:36] LABS: HEMATOCRIT 22.9 % (37.0-47.0); HEMOGLOBIN 7.3 g/dl (12.5-16.0); MEAN CORPUSCULAR HEMOGLOBIN 27 pg (27-31)
[2023-12-21 05:48] LABS: EOSINOPHIL 3 % (0-4); HYPOCHROMIA 1+; LYMPHOCYTE 24 % (20.0-51.0); NEUTROPHILS 62 % (42.0-75.2); PLATELET ESTIMATE NORMAL (NORMAL)
[2023-12-21 05:51] LABS: CALCIUM 8.5 mg/dL (8.4-10.2); CREATININE, serum 1.43 mg/dL (0.57-1.11); POTASSIUM 3.6 mEq/L (3.5-4.5)
--- NOTE | 2023-12-21 06:50 | NUR ---
PT RESTING IN BED. PT IS SR ON TELE. PT IS ON RA. PT HAS BRUISING AND SWELLING TO LUE FROM WRIST TO UPPER BICEP. PULSES PALPABLE RADIAL AND BRACHIAL.PT DENIES NUMBNESS AND TINGLING. ARM ALMA WRAPPED AND ELEVATED.
--- NOTE | 2023-12-21 09:27 | NUR ---
0855-TAMARA LEDESMA NOTIFIED OF PTS BRUSING AND SWELLING TO COLBY. PULSES PALPABLE. PT DENIES NUMBNESS OR TINGLING, BUT STATES SORENESS. LUE ALMA WRAPPED AND ELEVATED.
[2023-12-21] MEDS ORDERED: NS 1,000 ML IV SCH (11:15)
--- NOTE | 2023-12-21 11:17 | NUR ---
New IV started for CT scan, pt has a 22 tita in. New 20 tita placed. Pt up to [facility] then to wheelchair for CT scan.
[2023-12-21] MEDS ORDERED: Iohexol 350 - 100 ML VIAL IV ONE (11:33)
--- NOTE | 2023-12-21 11:41 | NUR ---
1130-Pt taken down to CT.
--- NOTE | 2023-12-21 13:13 | NUR ---
Data: RN and Bowstring Maker approached Patient's room at the same time. Spiritual care visit offered at a later time; however, Patient declined. Assessment: None at this time. Patient declined. Plan of Care: Chaplains will remain available as needed/requested while Patient is admitted to this hospital.
[2023-12-21 17:49] LABS: HEMATOCRIT 28.4 % (37.0-47.0); HEMOGLOBIN 9.3 g/dl (12.5-16.0)
--- NOTE | 2023-12-21 20:46 | NUR ---
PATIENT RESTING IN BED. DENIES CHEST PAIN AT THIS TIME. SHE DID VOICE SOME CONCERN THAT SHE NORMALLY WEARS 2L OXYGEN AT BEDTIME WHEN AT HOME, ADVISED HER THAT SHE IS BEING MONITORED BY RT AND THAT IF HER OXYGEN SATURATION DROPS IN THE NIGHT THEN WE'LL PLACE HER ON OXYGEN. ALSO REPORTING DISCOMFORT IN ONE OF HER RIGHT FOREARM IV SITES, REMOVED COBAN WRAP THAT HAD PREVIOUSLY BEEN PLACED AROUND THE SITE TO SEE IF THIS HELP WITH DISCOMFORT. CALL LIGHT WITHIN REACH. BED IS LOCKED AND IN LOW POSITION WITH BED ALARM ON.
[2023-12-22] VITALS (10 sets, daily range): BP systolic 116–186; BP diastolic 55–92; PULSE 65–79; TEMP 97.5–98.4
--- NOTE | 2023-12-22 01:31 | NUR ---
Patient care, medication administration and nursing documentation occurred during a Daylight Savings Time Change.
[2023-12-22 06:46] LABS: MEAN CELL VOLUME 85 fl (80.0-100.0); MEAN CORPUSCULAR HGB CONC 32 g/dl (33.0-37.0); MEAN PLATELET VOLUME 10.7 fl (7.4-10.4); PLATELET COUNT 264 K/mm3 (130-400); RED BLOOD COUNT 3.36 M/mm3 (4.10-5.30); REDCELL DISTRIBUTION WIDTH-CV 15.4 % (11.5-14.5)
[2023-12-22 06:53] LABS: HEMATOCRIT 28.6 % (37.0-47.0); HEMOGLOBIN 9.1 g/dl (12.5-16.0); MEAN CORPUSCULAR HEMOGLOBIN 27 pg (27-31)
[2023-12-22 06:58] LABS: CALCIUM 8.4 mg/dL (8.4-10.2); CREATININE, serum 1.37 mg/dL (0.57-1.11); POTASSIUM 3.8 mEq/L (3.5-4.5)
[2023-12-22 07:38] LABS: BAND 2 % (0-10); EOSINOPHIL 2 % (0-4); HYPOCHROMIA 1+; LYMPHOCYTE 38 % (20.0-51.0); NEUTROPHILS 48 % (42.0-75.2); PLATELET ESTIMATE NORMAL (NORMAL)
--- NOTE | 2023-12-22 10:08 | NUR ---
PATIENT RESTING IN BED, MORNING MEDICATIONS ADMINISTERED PER eMAR. PATIENT REPORTS MILD PAIN TO THE R CHEST AREA. UPDATED PATIENT ON PLAN FOR TODAY. DRESSING CHANGED TO R LATERAL ANKLE ULCER, MEPILEX PLACED TO THE L HEEL WELL. PATIENT ALSO WEARS PERSONAL HEEL BOOT TO R FOOT. MEPILEX PLACED TO SPOT ON R BUTTOCK, PRESENTS A SCALING RED PATCH, PATIENT REPORTS IT HAS BEEN THERE FOR MANY YEARS. CALL LIGHT WITHIN REACH, BED ALARM IN PLACE. WILL CONTINUE TO MONITOR.
[2023-12-22] MEDS ORDERED: Lidocaine 4% Topical Patch TP SCH (11:50)
[2023-12-22] MEDS ORDERED: Cyclobenzaprine 10 MG TAB PO PRN (12:00)
[2023-12-23 03:44] VITALS: BP 153/80; PULSE 68; TEMP 98.2
--- NOTE | 2023-12-23 07:00 | NUR ---
PT RESTING IN BED. PT IS ON RA. PT IS SR ON TELE. PT IS AXOX4. PT'S LUE ALMA WRAPPED AND ELEVATED. PT HAS CALL LIGHT WITHIN REACH AND INSTRUCTED TO CALL WTIH ALL NEEDS. BEDALARM ACTIVE.
[2023-12-23] MEDS ORDERED: BLUE-EMU LIDOC1 EACH TP (07:41)
[2023-12-23] MEDS ORDERED: PACERONE400 MG PO (07:44)
[2023-12-23 07:46] VITALS: BP 130/59; PULSE 69; TEMP 98
[2023-12-23 08:47] LABS: MEAN CELL VOLUME 85 fl (80.0-100.0); MEAN CORPUSCULAR HGB CONC 32 g/dl (33.0-37.0); MEAN PLATELET VOLUME 10.7 fl (7.4-10.4); PLATELET COUNT 273 K/mm3 (130-400); RED BLOOD COUNT 3.63 M/mm3 (4.10-5.30); REDCELL DISTRIBUTION WIDTH-CV 15.5 % (11.5-14.5)
[2023-12-23 09:04] LABS: CALCIUM 8.7 mg/dL (8.4-10.2); CREATININE, serum 1.48 mg/dL (0.57-1.11); POTASSIUM 3.8 mEq/L (3.5-4.5)
[2023-12-23 09:07] LABS: HEMOGLOBIN 9.8 g/dl (12.5-16.0); MEAN CORPUSCULAR HEMOGLOBIN 27 pg (27-31)
[2023-12-23 09:11] VITALS: BP_SYST 130
[2023-12-23 09:14] LABS: BAND 1 % (0-10); EOSINOPHIL 6 % (0-4); LYMPHOCYTE 33 % (20.0-51.0); NEUTROPHILS 49 % (42.0-75.2); PLATELET ESTIMATE NORMAL (NORMAL)
[2023-12-23] MEDS ORDERED: NORCO 325 MG-51 TAB PO (09:15)
--- NOTE | 2023-12-23 10:01 | NUR ---
IV AND TELE REMOVED. REPORT CALLED TO [facility]. ALL QUESTIONS ANSWERED. AWAITING TRANSPORT AT 1100.
--- NOTE | 2023-12-23 12:08 | NUR ---
1200-PT PICKED UP BY [facility] FOR DISCHARGE. PACKET GIVEN TO AUDIT PRACTICE INTERN.
== END 2023-12-23 12:08 | DRG 281 ==
LOC: COL.ER 21:32 → MEDICAL 12-19 01:26
PROVIDERS: Emergency Medicine; Internal Medicine; Physician Assistant; ADMIT Internal Medicine
PROC: 30233N1 Transfusion of Nonautologous Red Blood Cells into Peripheral Vein, Percutaneous Approach (ICD-10-PCS; principal; 2023-12-20)
DX: I21.4 Non-ST elevation (NSTEMI) myocardial infarction (principal); I13.0 Hypertensive heart and chronic kidney disease with heart failure and stage 1 through stage 4 chronic kidney disease, or unspecified chronic kidney disease; Z96.653 Presence of artificial knee joint, bilateral; Z88.0 Allergy status to penicillin; Z88.8 Allergy status to other drugs, medicaments and biological substances; Z88.7 Allergy status to serum and vaccine; Z88.6 Allergy status to analgesic agent; Z88.5 Allergy status to narcotic agent; E78.5 Hyperlipidemia, unspecified; R79.89 Other specified abnormal findings of blood chemistry; J44.89 Other specified chronic obstructive pulmonary disease; J45.909 Unspecified asthma, uncomplicated; D50.0 Iron deficiency anemia secondary to blood loss (chronic); G89.29 Other chronic pain; I48.0 Paroxysmal atrial fibrillation; E03.9 Hypothyroidism, unspecified; I11.0 Hypertensive heart disease with heart failure; Z79.890 Hormone replacement therapy; Z79.01 Long term (current) use of anticoagulants; Z79.899 Other long term (current) drug therapy; N18.30 Chronic kidney disease, stage 3 unspecified; E11.9 Type 2 diabetes mellitus without complications; T46.2X5A Adverse effect of other antidysrhythmic drugs, initial encounter
CPT/HCPCS: A9500-JZ; J1171; J1815; J2405; J2785; P9016; Q9967